=== PATIENT | male | born 1965 | race Caucasian/White ===

== ENCOUNTER → 2020-09-03 16:40 | Outpatient (CLI) | payer BC, SELFPAY ==
--- NOTE | ~2020-09-03 | XR_ITS ---
EXAMINATION: XR lumbar spine min 4V DATE: 09/03/2020 17:31 INDICATION: Lumbar radiculopathy. Sciatica. TECHNIQUE: 5 views of lumbar spine were obtained. COMPARISON: CT abdomen and pelvis 03/12/2019 FINDINGS: There is 7 degrees levocurvature of thoracolumbar spine. There is a transitional segment at lumbosacral junction that is designated L5. There are hypoplastic ribs at T12. There is 4 mm anterol isthesis of L4 on L5. There is mild chronic anterior wedging of T12 and L1 vertebral bodies. There is mildly decreased disc height from T12-L1 through L1-L2 and at L4-L5. There is severe facet joint ost eoarthritis in lower lumbar spine. IMPRESSION: 1. Mild lumbar spondylosis. Reviewed, dictated and finalized at location A. IMPRESSION: 1. Mild lumbar spondylosis.
--- NOTE | ~2020-09-03 | XR_ITS ---
EXAMINATION: XR cervical spine min 6V DATE: 09/03/2020 17:31 INDICATION: Neck pain. TECHNIQUE: 7 views of cervical spine were obtained. COMPARISON: Cervical spine radiographs 02/06/2019 FINDINGS: There is 3 mm dextrocurvature of cervical spine. Vertebral body heights are normal. There i s mildly decreased disc height at C4-C5 and C6-C7 and moderately decreased disc height at C5-C6. Ther e is multilevel uncovertebral joint osteoarthritis, severe on the right at C5-C6. There is multilevel mild facet joint osteoarthritis. There is mild right neural foraminal stenosis at C4-C5, C5-C6, and C6-C7. There is mild left neural foraminal stenosis at C4-C5, C5-C6, and C6-C7. There is mild central canal stenosis at C4-C5 C5-C6, and C6-C7. No prevertebral soft tissue swelling. IMPRESSION: 1. Moderate cervical spondylosis, stable from 02/06/2019. Reviewed, dictated and finalized at location A.
== END ==
DX: M47.812 Spondylosis without myelopathy or radiculopathy, cervical region (principal); M47.23 Other spondylosis with radiculopathy, cervicothoracic region
CPT/HCPCS: 72052; 72110

== ENCOUNTER 2022-04-22 10:38 | Outpatient (CLI) | payer BC, SELFPAY ==
--- NOTE | 2022-04-22 10:42 | EST_ITS ---
Patient Info Name: Brad Barahona Age: 56 years : 1965 Gender: Male Ht: 69 in Wt: 240 lbs BSA: 2.34 m2 HR: 75 bpm BP: 133 / 94 mmHg Exam Date: 04/22/2022 10:55 AM Exam Location: [facility] Stress Patient Status: Outpatient Admit Date: 04/22/2022 Staff Ordering Physician: Florentin Vela DO Attending Provider: Florentin Vela DO Exercise Technologist: Nidhi Adam CT Exercise Physician: Florentin Vela DO Exam Type: CA stress test treadmill Study Info Indications R06.09 - Other forms of dyspnea A treadmill exercise stress test was performed. Summary 1. 1. Negative Antione exercise stress test for ischemic ST changes by ECG criteria. 2. 2. Reduced functional capacity, achieving 7 METs of workload. 3. 3. Appropriate HR response to exercise. 4. 4. Appropriate HR recovery at 1 minute post exercise. 5. 5. No imaging with stress testing. 6. 6. Patient informed of the above results. Protocol: Antione Stress ECG Details Stage: REST Duration (min): 0 min : 58 sec Speed (mph): 0.0 Grade (%): 0 HR (bpm): 75 SBP (mmHg): 133 DBP (mmHg): 94 METS: --- Stage: REST Duration (min): 2 min : 14 sec Speed (mph): 0.0 Grade (%): 0 HR (bpm): 79 SBP (mmHg): 133 DBP (mmHg): 94 METS: --- Stage: REST Duration (min): 6 min : 5 sec Speed (mph): 0.0 Grade (%): 0 HR (bpm): 87 SBP (mmHg): 133 DBP (mmHg): 94 METS: --- Stage: STAGE 1 Duration (min): 1 min : 0 sec Speed (mph): 1.7 Grade (%): 10 HR (bpm): 118 SBP (mmHg): 133 DBP (mmHg): 94 METS: --- Stage: STAGE 1 Duration (min): 2 min : 0 sec Speed (mph): 1.7 Grade (%): 10 HR (bpm): 133 SBP (mmHg): 133 DBP (mmHg): 94 METS: --- Stage: STAGE 1 Duration (min): 3 min : 0 sec Speed (mph): 1.7 Grade (%): 10 HR (bpm): 133 SBP (mmHg): 179 DBP (mmHg): 85 METS: --- Stage: STAGE 2 Duration (min): 1 min : 0 sec Speed (mph): 2.5 Grade (%): 12 HR (bpm): 139 SBP (mmHg): 179 DBP (mmHg): 85 METS: --- Stage: STAGE 2 Duration (min): 2 min : 0 sec Speed (mph): 2.5 Grade (%): 12 HR (bpm): 150 SBP (mmHg): 182 DBP (mmHg): 76 METS: --- Stage: STAGE 2 Duration (min): 2 min : 8 sec Speed (mph): 2.5 Grade (%): 12 HR (bpm): 150 SBP (mmHg): 182 DBP (mmHg): 76 METS: --- Stage: RECOVERY Duration (min): 0 min : 51 sec Speed (mph): 0.0 Grade (%): 0 HR (bpm): 126 SBP (mmHg): 182 DBP (mmHg): 76 METS: --- Stage: RECOVERY Duration (min): 1 min : 51 sec Speed (mph): 0.0 Grade (%): 0 HR (bpm): --- SBP (mmHg): 182 DBP (mmHg): 76 METS: --- Stage: RECOVERY Duration (min): 2 min : 28 sec Speed (mph): 0.0 Grade (%): 0 HR (bpm): --- SBP (mmHg): 182 DBP (mmHg): 76 METS: --- Rest HR: 87 bpm Peak HR: 151 bpm Rest Sys BP: 133
== END 2022-04-22 10:39 | disposition home or self-care (01) ==
LOC: ANHCARD 10:39
PROVIDERS: Visit Provider Internal Medicine Cardiovascular Disease
DX: R06.09 Other forms of dyspnea (principal)
CPT/HCPCS: 93017

== ENCOUNTER 2022-10-09 22:00 | Inpatient (IN) | payer BC, SELFPAY ==
--- NOTE | ~2022-10-09 | XR_ITS ---
EXAMINATION: XR abdomen/kub 1V DATE: 10/11/2022 15:47 INDICATION: Ureteral stone TECHNIQUE: A supine view of the abdomen on 2 radiographs was obtained. COMPARISON: 10/10/2022 FINDINGS: Left internal ureteral stent with loops formed over the expected position of the left renal pelvis an d bladder. 5 mm stones project over the lower pole of the left kidney. Additional bilateral renal sto jil seen on the prior CT are unable to be definitively distinguished from the gas and stool in the rebolledo perimposed colon. Phlebolith in the left hemipelvis projecting over the pubic body. No dilated loops of gas-filled bowel to suggest obstruction. Lung bases are clear. Moderate lumbar spondylosis with se nellie lower lumbar facet osteoarthritis. IMPRESSION: 1. Left internal ureteral stent in expected position. 2. 5 mm stone projecting over the lower pole of the left kidney. Additional small bilateral renal sto jil seen on prior CT are unable to be distinguished from the superimposed bowels in the current study . Reviewed, dictated and finalized at location L. IMPRESSION: 1. Left internal ureteral stent in expected position. 2. 5 mm stone projecting over the lower pole of the left kidney. Additional sma ll bilateral renal stones seen on prior CT are unable to be distinguished from the superimposed bowels in the current study.
--- NOTE | ~2022-10-09 | CT_ITS ---
Non-contrast CT scan of the Abdomen and Pelvis Clinical indication: Left flank pain Technique: 2.5 mm axial scans were obtained through the abdomen and pelvis without intravenous or or al contrast. Dose reduction technique was used on this scan by utilizing automated exposure control a nd iterative reconstruction technique. The dose-length product (DLP) was 1151.70 mGy-cm. COMPARISON: 03/12/2019 Findings: Images through the lung bases reveal stable right middle lobe pulmonary nodules (axial ric ges 9-10). There is a 6 mm stone at the very proximal left ureter, with mild left hydronephrosis. Multiple addit ional small bilateral nonobstructing renal stones are present. No right ureteral stone or right hydro nephrosis. There is diffuse fatty infiltration of liver. Calcified gallstones are present. The spleen, pancreas, and adrenals appear normal. There are atherosclerotic calcifications of the aorta. There is no evidence of bowel obstruction. Images through the pelvis were performed. There is no evidence of ascites or lymphadenopathy. Possibl e urinary bladder wall thickening. Prostate gland and seminal vesicles are unremarkable. Impression: 6 mm proximal left ureteral stone with mild left hydronephrosis. Multiple small additional bilateral nonobstructing renal stones. Possible urinary bladder wall thickening. Correlate for cystitis. Cholelithiasis. Diffuse fatty infiltration of liver. Reviewed, dictated and finalized at [facility]. Impression: 6 mm proximal left ureteral stone with mild left hydronephrosis. Multiple small additional bilateral nonobstructing renal stones. Possible urinary bladder wall thickening. Correlate for cystitis. Cholelithiasis. Diffuse fatty infiltration of liver.
--- NOTE | ~2022-10-09 | XR_ITS ---
EXAMINATION: XR retrograde pyelo w/stent LT DATE: 10/10/2022 15:05 CDT INDICATION: LEFT SPECIAL . TECHNIQUE: 5 fluoroscopic images of the left abdomen and pelvis were obtained during left retrograde pyelography with stent placement performed by the surgeon. I was not present in the operating room. F luoroscopy exposure time was 14.4 seconds. Air Kerma 8.39 mGy. DAP [id number] mGym2. COMPARISON: CT abdomen and pelvis, same date FINDINGS: Rounded calcification projecting over the mid left abdomen likely representing the previously describ ed ureteral stone. Mild caliectasis following contrast injection. Following stent deployment the prox imal coil projects over an upper pole calyx, images of the distal coil not provided. IMPRESSION: Fluoroscopic documentation of left retrograde pyelography with stent placement. Please refer to the o perative note for complete procedural details . Reviewed, dictated and finalized at location K. IMPRESSION: Fluoroscopic documentation of left retrograde pyelography with stent placement. Please refer to the operative note for complete procedural details .
--- NOTE | ~2022-10-09 | CT_ITS ---
EXAMINATION: CT abdomen pelvis wo con DATE: 10/11/2022 18:41 INDICATION: left sided abd pain TECHNIQUE: Computed tomography (CT) of the abdomen and pelvis was performed without intravenous contr ast. Automated exposure control and iterative reconstruction technique were employed. The dose-length product was 1358.07 mGy-cm. COMPARISON: 10/10/2022. FINDINGS: Lower thorax: Small focus of acinar opacities in the right lower lobe. Bilateral lower lung scar and atelectasis. Fissural nodules in the right middle lobe, likely lymph nodes. Coronary artery calcifica tions. Liver: Diffuse fatty infiltration. Biliary/Gallbladder: Cholelithiasis, no bladder is mostly contracted. No bile duct dilation. Pancreas: No mass or duct dilation. Spleen: Normal. Adrenals:No mass. Kidneys: Right ureteral stent, in good position. Multiple nonobstructing bilateral calculi. No suspic ious renal mass or hydronephrosis. Moderate left perinephric stranding. Moderate left periureteral st randing. GI tract: No small or large bowel dilation. Appendix not confidently visualized. Mesentery/Peritoneum: No ascites, mass, or free air. Retroperitoneum: No mass. Pelvis: Small volume free pelvic fluid. Distended urinary bladder with wall thickening and intralumin al gas. Prostatomegaly. Soft Tissues: Soft tissues and body wall unremarkable. Bones: No acute osseous finding. IMPRESSION: Small focus of infection/aspiration in the right lower lobe. Hepatic steatosis. Left ureteral stent with no hydronephrosis. Findings as can be seen with cystitis and ascending infection on the left, correlate with urinalysis and clinical findings of infection. Reviewed, dictated and finalized at location K. IMPRESSION: Small focus of infection/aspiration in the right lower lobe. Hepatic steatosis. Left ureteral stent with no hydronephrosis. Findings as can be seen with cystitis and ascending infection on the left, nany elate with urinalysis and clinical findings of infection.
[2022-10-09 22:00] VITALS: BP 163/115; PULSE 91; RESP 20; TEMP 36.4; O2SAT 100
--- NOTE | 2022-10-09 23:43 | PC.NURSE ---
Patient comes to desk to inform this nurse he has some nausea and has vomited in the bathroom. Patient given emesis bag.
[2022-10-10] VITALS (10 sets, daily range): BP systolic 109–163; BP diastolic 68–106; PULSE 62–86; RESP 12–20; TEMP 36.6–37.1; O2SAT 90–98; BMI 36.1
--- NOTE | 2022-10-10 00:10 | ED.GENADULT ---
HPI - General Adult General Chief complaint: Urogenital-Male Stated complaint: . Time Seen by Provider: 10/10/22 00:00 Source: patient Mode of arrival: ambulatory Limitations: no limitations History of Present Illness HPI narrative: This is a 57-year-old male with PMH of HTN who presents to the ED for chief complaint left flank pain onset yesterday evening. Reports associated hematuria 3 hours prior to arrival. Patient reports the pain radiates from the left flank into the left lower abdomen and groin on occasion. He reports pain is 9 out of 10 currently. Denies dysuria. Endorses nausea and vomiting with 2 episodes of emesis. Denies fevers, chills, problems with bowel movements, rectal pain. Related Data Home Medications Medication Instructions Recorded Confirmed valsartan 160 1 tablet PO DAILY 02/26/19 03/21/22 mg-hydrochlorothiazide 12.5 mg tablet ascorbic acid (vitamin C) 500 mg mg PO 03/21/22 03/21/22 capsule aspirin 81 mg tablet,delayed 81 mg PO DAILY 03/21/22 03/21/22 release (Adult Low Dose Aspirin) doxazosin 4 mg tablet 4 mg PO DAILY 03/21/22 03/21/22 Allergies Allergy/AdvReac Type Severity Reaction Status Date / Time No Known Allergies Allergy Verified 10/09/22 23:44 [facility] Past Medical History Medical History Hypertension Stomach ulcer Surgical History Surgical History History of colonoscopy Family History Family History Father Hypertension Mother Hypertension Unknown Hypertension Social History Social History Smoking status: Never smoker Alcohol intake: never Living arrangements: alone 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 Cannot find comfortable position in the bed HEAD: Normocephalic, atraumatic. EYES: PERRLA and EOMI. ENT: Nares clear, no rhinorrhea or epistaxis. Mucous membranes moist. Oropharynx without tonsillar hypertrophy exudate or other lesions. NECK: Supple. No adenopathy or masses. CHEST: No respiratory distress. Clear to auscultation. No wheezes rales or rhonchi HEART: Regular rate and rhythm. No murmur heard. Normal peripheral pulses. ABDOMEN: Left flank tenderness positive. Negative right flank tenderness. Soft, otherwise nontender, nondistended, normal active bowel sounds. MSK: Normal range of motion. No edema. SKIN: Warm, dry, no rash. NEURO: Alert and oriented x3. No focal deficits. PSYCH: Normal mood and affect. Course Vital Signs Vital signs: Vital Signs Temperature 97.5 F L 10/09/22 22:00 Pulse Rate 91 10/09/22 22:00 Respiratory Rate 20 10/09/22 22:00 Blood Pressure 163/115 H 10/09/22 22:00 Pulse Oximetry 100 10/09/22 22:00 Oxygen Delivery Room Air 10/09/22 22:00 Temperature 97.5 F L 10/09/22 22:00 Pulse Rate 91 10/09/22 22:00 Respiratory Rate 20 10/09/22 22:00 Blood Pressure 163/115 H 10/09/22 22:00 Pulse Oximetry 100 10/09/22 22:00 Oxygen Delivery Room Air 10/09/22 22:00 Medical Decision Making MDM Narrative Medical decision making narrative: This is a 57-year-old male who presents to the ED with chief complaint of left flank pain radiating to the left abdomen for 1 day. Vitals show initial hypertension but otherwise benign. Afebrile. Exam does reveal left flank tenderness. He is exhibiting renal colic. Initial lab work shows a normal white count. His CMP reveals slight creatinine elevation at 1.6 and BUN of 24. UA is indicative of possible infection. His CT scan is revealing of 8.5 cm stone in the proximal left ureter with mild hydronephrosis. They also call possible cystitis. This is consistent with his UA so he will be covered with Rocephin. His pain was somewhat difficult to cont
[2022-10-10] MEDS: ONDANSETRON INJ 4 MG/2 ML VIAL IV PUSH ×2 (00:42→09:46)
[2022-10-10] MEDS: HYDROmorphone HCL INJ (*CRX) 1 MG/ML SYR 0.5 MG IV PUSH ×2 (00:42→01:51)
[2022-10-10] MEDS: SODIUM CHLORIDE 0.9% IV 1,000 ML 999 ML IV CONT (00:43)
[2022-10-10 01:10] LABS: Basophils Absolute Auto 0.1 K/mm3 (0.0-0.1); Basophils Percent Auto 0.7 % (0.2-1.2); Eosinophils Absolute Auto 0.1 K/mm3 (0-0.3); Eosinophils Percent Auto 0.8 % (0-4.4); Hemoglobin 15.6 g/dL (14.0-18.0); Immature Granulocyte Absolute 0.05 K/mm3 (0.00-0.031); Immature Granulocyte Percent A 0.5 % (0-0.5); Lymphocytes Absolute Auto 1.16 K/mm3 (0.9-3.2); Lymphocytes Percent Auto 11.2 % (18.3-44.2); Mean Corpuscular HGB Conc 36.3 g/dl (32-36); Mean Corpuscular Hemoglobin 31.8 pg (26-34); Mean Corpuscular Volume 87.6 fl (80-100); Mean Platelet Volume 9.4 fl (7.4-10.4); Monocytes Absolute Auto 0.6 K/mm3 (0.1-0.6); Monocytes Percent Auto 5.4 % (2.6-8.5); Neutrophils Absolute Auto 8.5 K/mm3 (1.3-6.7); Neutrophils Percent Auto 81.4 % (45.5-73.1); Platelet Count Result 209 k/mm3 (150-375); Red Blood Count 4.91 M/mm3 (4.6-6.20); Red Cell Distribution Width 13.2 % (11.5-14.5); White Blood Count 10.4 K/mm3 (4.5-10.0)
[2022-10-10 01:12] LABS: Alanine Aminotransferase 51 U/L (6-50); Albumin Level 4.9 g/dL (3.5-5.1); Alkaline Phosphatase 34 U/L (38-126); Anion Gap 7 mmol/L (8-16); Aspartate Amino Transferase 44 U/L (17-59); Bilirubin,Total 2.3 mg/dL (0.2-1.3); Blood Urea Nitrogen 24 mg/dL (9-20); Calcium 10.1 mg/dL (8.4-10.2); Carbon Dioxide 25 mmol/L (22-30); Chloride 105 mmol/L (98-107); Estimated CRCL calculation 58 ml/min; Estimated Glomerular Filt Rate 45; Glucose 111 mg/dL (65-110); Potassium 3.9 mmol/L (3.4-5.0); Sodium 137 mmol/L (137-145)
[2022-10-10 01:15] LABS: Appearance Urine Cloudy (Clear); Bacteria Urine None Seen /hpf; Bilirubin Urine Negative (Negative); Blood Urine 3+ (Negative); Color Urine Dark Yellow (Yellow); Glucose Urine UA Negative (Negative); Ketones Urine Trace mg/dL (Negative); Leukocyte Esterase Ur 2+ LEU/UL (Negative); Need Manual Microscopic Reviewed; Nitrate Urine Negative (Negative); Non Pathogenic Casts 0-2; Protein Urine 2+ mg/dL (Negative); RBC Urine >100 /hpf (0-2); Squamous Epithelial Cell Urine None seen /hpf (Few); WBC Urine 51-100 /hpf; pH Urine 5.5 (5.0-9.0)
[2022-10-10 01:30] LABS: Add Urine Microscopic? YES
[2022-10-10] MEDS: cefTRIAXone 2 GM/NS 100 ML 2 GM/100 ML BAG IVPB (01:51)
[2022-10-10] MEDS: HYDROmorphone HCL INJ (*CRX) 1 MG/ML SYR IV PUSH ×3 (03:11→09:40)
[2022-10-10] MEDS: SODIUM CHLORIDE 0.9% IV 1,000 ML 125 ML IV CONT ×3 (03:11→21:20)
--- NOTE | 2022-10-10 03:35 | ADMGEN ---
This patient, Brad Barahona, was admitted to Medical Room 241-. Patient/family oriented to hospital policies and general routines including ID bracelet, bed and alarms, visiting hours, pain management, procedures, bathroom and other care routines, personal items, smoking policy, room service/diet, and visiting hours. Information on how to activate the Rapid Response Team has been discussed. Patient/Family are encouraged to report perceived risks to care and to ask questions if they do not understand what they are told or what they should do.
[2022-10-10] MEDS: HYDROmorphone HCL INJ (*CRX) 1 MG/ML SYR 2 MG IV PUSH ×5 (03:52→23:33)
[2022-10-10 05:36] LABS: Anion Gap 9 mmol/L (8-16); Blood Urea Nitrogen 24 mg/dL (9-20); Calcium 9.1 mg/dL (8.4-10.2); Carbon Dioxide 23 mmol/L (22-30); Chloride 108 mmol/L (98-107); Estimated CRCL calculation 58 ml/min; Estimated Glomerular Filt Rate 45; Glucose 135 mg/dL (65-110); Potassium 4.2 mmol/L (3.4-5.0); Sodium 140 mmol/L (137-145)
[2022-10-10 05:44] LABS: Hematocrit 40.3 % (42.0-52.0); Mean Corpuscular HGB Conc 34.7 g/dl (32-36); Mean Corpuscular Volume 89.4 fl (80-100); Mean Platelet Volume 9.1 fl (7.4-10.4); Platelet Count Result 206 k/mm3 (150-375); Red Blood Count 4.51 M/mm3 (4.6-6.20); Red Cell Distribution Width 13.2 % (11.5-14.5); White Blood Count 10.1 K/mm3 (4.5-10.0)
--- NOTE | 2022-10-10 07:36 | WPDURCON ---
Assessment and Plan Assessment and plan (1) Left ureteral calculus: Code(s): N20.1 - Calculus of ureter Status: Acute Assessment and Plan: I will taken to the operating room for left ureteral stent today. He understands risks of bleeding, infection, damage to the urinary tract. He also understands I will not be removing the stone today. We will plan on definitive stone management as an outpatient. I will get a KUB to see if stone is visible. We will also need to wait for results of urine culture. (2) Hydronephrosis: Code(s): N13.30 - Unspecified hydronephrosis Status: Acute (3) Multiple renal calculi: Code(s): N20.0 - Calculus of kidney Status: Acute (4) Abnormal urinalysis: Code(s): R82.90 - Unspecified abnormal findings in urine Status: Acute Assessment and Plan: Continue antibiotics. Treat based on urine culture Urology Consult Note HPI Date Seen: 10/10/22 Requesting Physician: Rosario Araya MD Primary Care Provider: PHYSICIAN NOT ON STAFF Consult Narrative Narrative: Brad Barahona is a 57 year old male who was never passed a stone before. He started having left flank pain on Monday afternoon which went in to Monday and then became much worse Monday night. He noted nausea with vomiting. He noted blood in the urine. He denies any fevers or chills. He denied any dysuria or symptoms of infection. CT scan shows bilateral renal stones as well as a 6 mm proximal left ureteral stone with hydronephrosis. He is uncomfortable and desires intervention for this stone. Review of Systems Review of Systems: All systems reviewed & are unremarkable except as noted in HPI and below PMFSH Past Medical History Medical History Hypertension Stomach ulcer Surgical History Surgical History History of colonoscopy Family History Family History Father Hypertension Mother Hypertension Unknown Hypertension Social History Social History Smoking status: Never smoker Alcohol intake: never Substance use: never Lack of Transportation: No Lack of Food: Never True Current Housing: I Have Housing Concerned About Future Housing: No Difficulty Paying Gas/Electric Bills: No Difficulty Paying for Meds: No Currently Unemployed: No Education: Associate Degree Difficulty w/ Childcare or Family Care: No Living arrangements: alone 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 [employer] Spiritual care concerns: No Meds Home Medications and Allergies Home Medications Medication Instructions Recorded Confirmed Type valsartan 160 1 tablet PO DAILY 02/26/19 10/10/22 History mg-hydrochlorothiazide 12.5 mg tablet ascorbic acid (vitamin C) 500 mg 500 mg PO DAILY 03/21/22 10/10/22 History capsule aspirin 81 mg tablet,delayed 81 mg PO DAILY 03/21/22 10/10/22 History release (Adult Low Dose Aspirin) doxazosin 4 mg tablet 4 mg PO DAILY 03/21/22 10/10/22 History [id number] 333 mg-133 1 tablet PO DAILY 10/10/22 10/10/22 History mg-5 mg tablet Allergies Allergy/AdvReac Type Severity Reaction Status Date / Time No Known Allergies Allergy Verified 10/09/22 23:44 Vital Signs Vital Signs - 24 hr 10/09/22 22:00 10/10/22 02:15 10/10/22 01:30 Temperature 97.5 F L Pulse Rate 91 79 80 Respiratory Rate 20 18 18 Blood Pressure 163/115 H 153/80 H 154/89 H Pulse Oximetry 100 94 96 Oxygen Delivery Room Air 10/10/22 03:35 10/10/22 04:24 Temperature 98.3 F Pulse Rate 78 Respiratory Rate 18 Blood Pressure 163/106 H Pulse Oximetry 96 Oxygen Delivery Room Air Exam Const: General: cooperative, healthy appearing, well developed, alert, awake, Physically act
--- NOTE | 2022-10-10 09:03 | PM.IMHP ---
H&P: HPI History of Present Illness Date/Time: 10/10/22 09:03 Chief Complaint: Left flank pain Narrative: 57 old male with past medical history of hypertension presented to the ED complaining of left flank pain that started 2 days ago on all severe yesterday with associated hematuria. Pain in the left fine radiates to the left lower abdomen and groin on occasion. Severe intensity reports no dysuria no nausea vomiting no fever chills. No change in bowel habits. Cardiogram revealed normal WBC count creatinine slightly elevated 1.6 UA indicated a possible infection CT revealed 8 point cm stone in the proximal left ureter with mild hydronephrosis. Rocephin was given urology has been consulted. Review of Systems Review of Systems: - CONSTITUTIONAL: Denies weight loss, fever and chills. - HEENT: Denies changes in vision and hearing - RESPIRATORY: Denies SOB and cough. - CV: Denies palpitations and CP. - GI: Reports left flank pain, no abdominal pain, nausea, vomiting and diarrhea. - : Denies dysuria and urinary frequency. - MSK: Denies myalgia and joint pain. - SKIN: Denies rash and pruritus. - NEUROLOGICAL: Denies headache and syncope. - PSYCHIATRIC: Denies recent changes in mood. Denies anxiety and depression. [facility] Past Medical History Medical History Hypertension Stomach ulcer Surgical History Surgical History History of colonoscopy Family History Family History Father Hypertension Mother Hypertension Unknown Hypertension Social History Social History Smoking status: Never smoker Alcohol intake: never Substance use: never Lack of Transportation: No Lack of Food: Never True Current Housing: I Have Housing Concerned About Future Housing: No Difficulty Paying Gas/Electric Bills: No Difficulty Paying for Meds: No Currently Unemployed: No Education: Associate Degree Difficulty w/ Childcare or Family Care: No Living arrangements: alone 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 Spiritual care concerns: No Meds Home Medications and Allergies Home Medications Medication Instructions Recorded Confirmed Type valsartan 160 1 tablet PO DAILY 02/26/19 10/10/22 History mg-hydrochlorothiazide 12.5 mg tablet ascorbic acid (vitamin C) 500 mg 500 mg PO DAILY 03/21/22 10/10/22 History capsule aspirin 81 mg tablet,delayed 81 mg PO DAILY 03/21/22 10/10/22 History release (Adult Low Dose Aspirin) doxazosin 4 mg tablet 4 mg PO DAILY 03/21/22 10/10/22 History dvoheua-aifshsxjx-krea 333 mg-133 1 tablet PO DAILY 10/10/22 10/10/22 History mg-5 mg tablet Allergies Allergy/AdvReac Type Severity Reaction Status Date / Time No Known Allergies Allergy Verified 10/09/22 23:44 Vital Signs Vital Signs - 24 hr 10/09/22 22:00 10/10/22 02:15 10/10/22 01:30 Temperature 97.5 F L Pulse Rate 91 79 80 Respiratory Rate 20 18 18 Blood Pressure 163/115 H 153/80 H 154/89 H Pulse Oximetry 100 94 96 Oxygen Delivery Room Air 10/10/22 03:35 10/10/22 04:24 Temperature 98.3 F Pulse Rate 78 Respiratory Rate 18 Blood Pressure 163/106 H Pulse Oximetry 96 Oxygen Delivery Room Air Exam Narrative: GENERAL: Alert and oriented x3 in pain HEAD: Normocephalic, atraumatic. EYES: PERRLA and EOMI. ENT: Nares clear, no rhinorrhea or epistaxis.? Mucous membranes moist. NECK: Supple.? No adenopathy or masses.? CHEST: No respiratory distress. Clear to auscultation. No wheezes rales or rhonchi HEART: Regular rate and rhythm.? No murmur heard.? Normal peripheral pulses. ABDOMEN: Left flank tenderness positive.? Negative right flank tenderness.? Soft, otherwise nontender, nondistended, normal active bowel sounds. MSK: N
--- NOTE | 2022-10-10 13:47 | WPDHPUPDATE1 ---
History and Physical Update Update Date/Time: 10/10/22 13:47 History and Physical has been reviewed, including an updated exam of the patient. There are NO changes in the patient's condition. Risks, benefits, and alternatives have been discussed and questions answered. Patient agrees to proceed with procedure.
--- NOTE | 2022-10-10 14:14 | WPDANESEPPF ---
Anes - Initial Pre Proc Eval Procedure: Operation Date: 10/10/22 16:00 Proposed Procedures p Cystoscopy, Left Stent Placement - Ben Toledo MD Date/Time: 10/10/22 14:14 Surgeon: Rosario Araya MD Pre Op Diagnosis: Left Ureteral Stone, Cystitis Patient Data Age: 57 Gender: M Height: 1.75 m Weight: 111 kg Last Vital Signs Temp 36.7 C 10/10/22 14:08 Pulse 62 10/10/22 14:08 Resp 16 10/10/22 14:08 BP 109/68 10/10/22 14:08 Pulse Ox 96 10/10/22 14:08 O2 Del Method Room Air 10/10/22 14:08 Allergies Allergy/AdvReac Type Severity Reaction Status Date / Time No Known Allergies Allergy Verified 10/10/22 14:10 Home Medications Medication Instructions Recorded Confirmed Type valsartan 160 1 tablet PO DAILY 02/26/19 10/10/22 History mg-hydrochlorothiazide 12.5 mg tablet ascorbic acid (vitamin C) 500 mg 500 mg PO DAILY 03/21/22 10/10/22 History capsule aspirin 81 mg tablet,delayed 81 mg PO DAILY 03/21/22 10/10/22 History release (Adult Low Dose Aspirin) doxazosin 4 mg tablet 4 mg PO DAILY 03/21/22 10/10/22 History qjfzbra-pngtvnhls-vkcg 333 mg-133 1 tablet PO DAILY 10/10/22 10/10/22 History mg-5 mg tablet Laboratory Tests 10/10/22 10/10/22 00:47 05:18 WBC 10.4 H K/mm3 10.1 H K/mm3 (4.5-10.0) (4.5-10.0) RBC 4.91 M/mm3 4.51 L M/mm3 (4.6-6.20) (4.6-6.20) Hgb 15.6 g/dL 14.0 g/dL (14.0-18.0) (14.0-18.0) Hct 43.0 % 40.3 L % (42.0-52.0) (42.0-52.0) MCV 87.6 fl 89.4 fl (80-100) (80-100) MCH 31.8 pg 31.0 pg (26-34) (26-34) MCHC 36.3 H g/dl 34.7 g/dl (32-36) (32-36) RDW 13.2 % 13.2 % (11.5-14.5) (11.5-14.5) Plt Count 209 k/mm3 206 k/mm3 (150-375) (150-375) MPV 9.4 fl 9.1 fl (7.4-10.4) (7.4-10.4) Immature Gran % (Auto) 0.5 % (0-0.5) Neut % (Auto) 81.4 H % (45.5-73.1) Lymph % (Auto) 11.2 L % (18.3-44.2) [place] % (Auto) 5.4 % (2.6-8.5) Eos % (Auto) 0.8 % (0-4.4) Baso % (Auto) 0.7 % (0.2-1.2) Lymph # (Auto) 1.16 K/mm3 (0.9-3.2) [place] # (Auto) 0.6 K/mm3 (0.1-0.6) Eos # (Auto) 0.1 K/mm3 (0-0.3) Baso # (Auto) 0.1 K/mm3 (0.0-0.1) Abs Immat Gran (auto) 0.05 H K/mm3 (0.00-0.031) Absolute Neuts (auto) 8.5 H K/mm3 (1.3-6.7) Absolute Nucleated RBC 0.0 K/mm3 (0.0-0.012) Nucleated RBC % 0.0 % (0.0-0.2) Sodium 137 mmol/L 140 mmol/L (137-145) (137-145) Potassium 3.9 mmol/L 4.2 mmol/L (3.4-5.0) (3.4-5.0) Chloride 105 mmol/L 108 H mmol/L (98-107) (98-107) Carbon Dioxide 25 mmol/L 23 mmol/L (22-30) (22-30) Anion Gap 7 L mmol/L 9 mmol/L (8-16) (8-16) BUN 24 H mg/dL 24 H mg/dL (9-20) (9-20) Creatinine 1.60 H mg/dL 1.60 H mg/dL (0.7-1.3) (0.7-1.3) Estim Creat Clear Calc 58 ml/min 58 ml/min Estimated GFR 45 L 45 L (59 - ) (59 - ) Glucose 111 H mg/dL 135 H mg/dL (65-110) (65-110) Calcium 10.1 mg/dL 9.1 mg/dL (8.4-10.2) (8.4-10.2) Total Bilirubin 2.3 H mg/dL (0.2-1.3) AST 44 U/L (17-59) ALT 51 H U/L (6-50) Alkaline Phosphatase 34 L U/L (38-126) Total Protein 8.0 g/dL (6.3-8.2) Albumin 4.9 g/dL (3.5-5.1) Urine Color Dark yellow (Yellow) Urine Appearance Cloudy H (Clear) Urine pH 5.5 (5.0-9.0) Ur Specific [place] 1.020 (1.001-1.035) Urine Protein 2+ H mg/dL (Negative) Urine Glucose (UA) Negative mg/dL (Negative) Urine Ketones Trace H mg/dL (Negative) Ur Blood (Man) 3+ H (Negative) Urine Nitrate Negative (Negative) Urine Bilirubin Negative (Negative) Urine Urobilinogen 1.0 mg/dL (<2.0) Add Ur Microanalysis Reviewed Leukocyte Esterase Rfl 2+ H BRAD/UL (Negative) Urine RBC >100 H /hpf (0-2) Urine WBC 51-100
[2022-10-10] MEDS: LACTATED RINGERS 1,000 ML 30 ML IV CONT (14:15)
--- NOTE | 2022-10-10 14:29 | PCCCNOTE ---
On 10/10/22, the student, Lulu Starr, provided care and completed [facility] documentation on this patient. I have reviewed the student's documentation and agree with the findings.
[2022-10-10] MEDS: LIDOCAINE HCL 2% GEL UROJET 10 ML PKG MUCOUS MEM (15:10)
--- NOTE | 2022-10-10 15:38 | WPDUROPN2 ---
Subjective Subjective Date/Time Seen: 10/10/22 15:38 Interval history: Ureteral stent placed today on the left. When urine culture returns he can be sent home on antibiotics if culture positive. My partner Dr. Cosby. Will arrange definitive stone management Objective Data Vital Signs Vital Signs: Vital Signs - 24 hr 10/09/22 22:00 10/10/22 02:15 10/10/22 01:30 Temperature 97.5 F L Pulse Rate 91 79 80 Respiratory Rate 20 18 18 Blood Pressure 163/115 H 153/80 H 154/89 H Pulse Oximetry 100 94 96 Oxygen Delivery Room Air 10/10/22 03:35 10/10/22 04:24 10/10/22 14:08 Temperature 98.3 F 98.0 F Pulse Rate 78 62 Respiratory Rate 18 16 Blood Pressure 163/106 H 109/68 Pulse Oximetry 96 96 Oxygen Delivery Room Air Room Air Intake/Output Intake/Output: Intake & Output 10/07/22 10/08/22 10/09/22 10/10/22 23:59 23:59 23:59 23:59 Intake Total 2100 Output Total 350 Balance 1750 Meds/Results Medications: Active Medications Generic Name Dose Route Start Last Admin Trade Name Freq PRN Reason Stop Dose Admin Ascorbic Acid 500 mg 10/11/22 09:00 Ascorbic Acid 500 Mg Tablet PO DAILY [facility] Aspirin 81 mg 10/11/22 09:00 Aspirin 81 Mg Enteric Tablet PO DAILY [facility] Doxazosin Mesylate 4 mg 10/11/22 09:00 Doxazosin Mesylate 4 Mg Tablet PO DAILY [facility] Hydromorphone HCl 2 mg 10/10/22 11:11 10/10/22 11:23 Hydromorphone Hcl Inj (*Crx) 1 Mg/Ml Syr IV PUSH 2 mg Q2H PRN Administration Pain Rated 7-10 Sodium Chloride 1,000 mls @ 125 mls/hr 10/10/22 02:25 10/10/22 09:44 Normal Saline Iv IV CONT 125 mls/hr .Q8H CIPRIANO Administration Ceftriaxone Sodium 1 gm in 50 mls @ 100 mls/hr 10/11/22 02:00 Rocephin 1 Gm/Ns 50 Ml IVPB Q24H [facility] Miscellaneous Information 1 each 10/10/22 00:01 Lgbfkdh-Aqvzyegvb-Jmal 333-133-5 Mg Tablet Is Nonformulary. Hold While Hospitalized? XX 11/09/22 00:00 CLARIFY CIPRIANO Non-Formulary Medication 1 tablet 10/11/22 09:00 Oizlvfz-Usjqdquqt-Xgmw PO 11/10/22 08:59 DAILY [facility] Ondansetron HCl 4 mg 10/10/22 02:23 10/10/22 09:46 Ondansetron Inj 4 Mg/2 Ml Vial IV PUSH 4 mg Q4H PRN Administration Nausea Radiology Results: ITS Impressions Abdomen/Pelvis CT 10/10/22 06:12 Impression: 6 mm proximal left ureteral stone with mild left hydronephrosis. Multiple small additional bilateral nonobstructing renal stones. Possible urinary bladder wall thickening. Correlate for cystitis. Cholelithiasis. Diffuse fatty infiltration of liver. Retrograde Pyelogram 10/10/22 15:20 IMPRESSION: Fluoroscopic documentation of left retrograde pyelography with stent placement. Please refer to the operative note for complete procedural details . Labs Labs: Laboratory Results - last 24 hr 10/10/22 10/10/22 00:47 05:18 WBC 10.4 H 10.1 H RBC 4.91 4.51 L Hgb 15.6 14.0 Hct 43.0 40.3 L MCV 87.6 89.4 MCH 31.8 31.0 MCHC 36.3 H 34.7 RDW 13.2 13.2 Plt Count 209 206 MPV 9.4 9.1 Immature Gran % (Auto) 0.5 Neut % (Auto) 81.4 H Lymph % (Auto) 11.2 L [place] % (Auto) 5.4 Eos % (Auto) 0.8 Baso % (Auto) 0.7 Lymph # (Auto) 1.16 [place] # (Auto) 0.6 Eos # (Auto) 0.1 Baso # (Auto) 0.1 Abs Immat Gran (auto) 0.05 H Absolute Neuts (auto) 8.5 H Absolute Nucleated RBC 0.0 Nucleated RBC % 0.0 Sodium 137 140 Potassium 3.9 4.2 Chloride 105 108 H Carbon Dioxide 25 23 Anion Gap 7 L 9 BUN 24 H 24 H Creatinine 1.60 H 1.60 H Estim Creat Clear Calc 58 58 Estimated GFR 45 L 45 L Glucose 111 H 135 H Calcium 10.1 9.1 Total Bilirubin 2.3 H AST 44 ALT 51 H Alkaline Phosphatase 34 L Total Protein 8.0 Albumin 4.9 Urine Color Dark yellow Urine Appearance Cloudy H Urine pH 5.5 Ur Specific [place] 1.020 Urine Protein 2+ H Urine Glucose (UA) Negative Urine Ketones Trace H Ur Blood (Man) 3+ H Urine
--- NOTE | 2022-10-10 15:38 | W.PM.PROC2 ---
Procedure Note - Detailed Date of Procedure 10/10/22 Pre-op Diagnosis Left Ureteral Stone Post-op Diagnosis Same Procedure Performed Cystoscopy, left retrograde pyelogram, left ureteral stent placement Surgeon Ben Toledo MD Anesthesia General Indications This is a gentleman with a left ureteral stone. He has a abnormal urinalysis. No prominent symptoms of infection. We will place a stent today and await urine culture. Definitive stone management follow-up. He understands risks of bleeding, infection, inability to place the stent, damage to the urinary tract. 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 Informed consent obtained. From the operating room. He was given general anesthesia. He was placed in dorsal lithotomy position. He was prepped and draped sterile fashion. Time-out performed. 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 Stone was seen in the proximal left ureter. I performed cystoscopy. His bladder was examined and showed moderate trabeculations. There is no tumors or stones. I did a gentle retrograde pyelogram on the left. I outlined ureteral night of a. The stone was seen as a filling defect. There is no extravasation. Placed a guidewire to the kidney. I then placed a 4.8 variable length stent. Proximal coil in the renal pelvis upper pole. Distal coil in the bladder. His bladder was drained. He was awakened transferred to PACU in stable condition Implants Ureteral stent Estimated Blood Loss 0 Urine Output 150 Condition Stable Disposition PACU
[2022-10-10] MEDS: oxyBUTYnin CHLORIDE 5 MG TABLET PO (16:42)
[2022-10-11] MEDS: HYDROcodone/acetaminophen (*CRX) 5-325 MG TABLET 1 TAB PO ×3 (01:37→13:07)
[2022-10-11 05:29] VITALS: BP 123/73; PULSE 71; RESP 17; TEMP 37; O2SAT 96
[2022-10-11 05:34] LABS: Basophils Percent Auto 0.4 % (0.2-1.2); Hematocrit 36.8 % (42.0-52.0); Hemoglobin 12.6 g/dL (14.0-18.0); Immature Granulocyte Absolute 0.06 K/mm3 (0.00-0.031); Immature Granulocyte Percent A 0.5 % (0-0.5); Lymphocytes Absolute Auto 0.81 K/mm3 (0.9-3.2); Lymphocytes Percent Auto 7.3 % (18.3-44.2); Mean Corpuscular HGB Conc 34.2 g/dl (32-36); Mean Corpuscular Hemoglobin 31.4 pg (26-34); Mean Corpuscular Volume 91.8 fl (80-100); Mean Platelet Volume 9.1 fl (7.4-10.4); Monocytes Absolute Auto 0.8 K/mm3 (0.1-0.6); Monocytes Percent Auto 6.9 % (2.6-8.5); Neutrophils Absolute Auto 9.4 K/mm3 (1.3-6.7); Neutrophils Percent Auto 84.9 % (45.5-73.1); Platelet Count Result 183 k/mm3 (150-375); Red Blood Count 4.01 M/mm3 (4.6-6.20); Red Cell Distribution Width 13.5 % (11.5-14.5); White Blood Count 11.1 K/mm3 (4.5-10.0)
[2022-10-11 05:45] LABS: Alanine Aminotransferase 39 U/L (6-50); Albumin Level 3.8 g/dL (3.5-5.1); Alkaline Phosphatase 21 U/L (38-126); Anion Gap 6 mmol/L (8-16); Aspartate Amino Transferase 32 U/L (17-59); Bilirubin,Total 2.3 mg/dL (0.2-1.3); Blood Urea Nitrogen 29 mg/dL (9-20); Calcium 8.2 mg/dL (8.4-10.2); Carbon Dioxide 23 mmol/L (22-30); Chloride 105 mmol/L (98-107); Estimated CRCL calculation 58 ml/min; Estimated Glomerular Filt Rate 45; Glucose 118 mg/dL (65-110); Magnesium 2.1 mg/dL (1.6-2.3); Potassium 4.2 mmol/L (3.4-5.0); Sodium 134 mmol/L (137-145)
[2022-10-11] MEDS: SODIUM CHLORIDE 0.9% IV 1,000 ML 125 ML IV CONT ×3 (06:31→21:31)
[2022-10-11] MEDS: ASCORBIC ACID 500 MG TABLET PO (07:51)
[2022-10-11] MEDS: DOXAZOSIN MESYLATE 4 MG TABLET PO (07:51)
[2022-10-11] MEDS: hydroCHLOROthiazide 12.5 MG CAPSULE PO (07:51)
[2022-10-11] MEDS: VALSARTAN 160 MG TABLET PO (07:51)
[2022-10-11] MEDS: ASPIRIN 81 MG ENTERIC TABLET PO (07:51)
[2022-10-11] MEDS: HYDROmorphone HCL INJ (*CRX) 1 MG/ML SYR 2 MG IV PUSH ×5 (07:52→21:20)
[2022-10-11 08:00] VITALS: O2SAT 96
--- NOTE | 2022-10-11 10:54 | WPDANESPN ---
Anes - Prog Note Post-Op Date/Time: 10/11/22 10:54 Vital Signs: Last Vital Signs Temp 37.0 C 10/11/22 05:29 Pulse 71 10/11/22 05:29 Resp 17 10/11/22 05:29 BP 123/73 10/11/22 05:29 Pulse Ox 96 10/11/22 08:00 O2 Del Method Room Air 10/11/22 08:00 O2 Flow Rate 6 10/10/22 15:45 Pain Score (VAS): 7 I/O: Intake & Output 10/10/22 10/11/22 10/11/22 23:59 07:59 15:59 Intake Total 2240 1800 740 Output Total 800 925 300 Balance 1440 875 440 Laboratory Tests 10/11/22 05:11 10/11/22 05:11 10/11/22 05:11 WBC 11.1 H RBC 4.01 L Hgb 12.6 L Hct 36.8 L MCV 91.8 MCH 31.4 MCHC 34.2 RDW 13.5 Plt Count 183 MPV 9.1 Immature Gran % (Auto) 0.5 Neut % (Auto) 84.9 H Lymph % (Auto) 7.3 L [place] % (Auto) 6.9 Eos % (Auto) 0.0 Baso % (Auto) 0.4 Lymph # (Auto) 0.81 L [place] # (Auto) 0.8 H Eos # (Auto) 0.0 Baso # (Auto) 0.0 Abs Immat Gran (auto) 0.06 H Absolute Neuts (auto) 9.4 H Absolute Nucleated RBC 0.0 Nucleated RBC % 0.0 Sodium 134 L Potassium 4.2 Chloride 105 Carbon Dioxide 23 Anion Gap 6 L BUN 29 H Creatinine 1.60 H Estim Creat Clear Calc 58 Estimated GFR 45 L Glucose 118 H Calcium 8.2 L Magnesium 2.1 Total Bilirubin 2.3 H AST 32 ALT 39 Alkaline Phosphatase 21 L Total Protein 6.0 L Albumin 3.8 Microbiology 10/10/22 00:47 Unspecified Urine Culture - Final 10/10/22 05:18 Blood Blood Culture - Preliminary 10/10/22 05:18 Blood Blood Culture - Preliminary Patient Feedback: Patient satisfied with anesthetic care.
[2022-10-11 14:05] VITALS: BP 128/62; PULSE 71; RESP 17; TEMP 36.6; O2SAT 100
[2022-10-11] MEDS: oxyBUTYnin CHLORIDE 5 MG TABLET PO (14:11)
--- NOTE | 2022-10-11 15:18 | WPDPN ---
Progress Note: A&P Assessment and Plan (1) Multiple renal calculi: Code(s): N20.0 - Calculus of kidney Status: Acute (2) Hydronephrosis: Code(s): N13.30 - Unspecified hydronephrosis Status: Acute (3) Left ureteral calculus: Code(s): N20.1 - Calculus of ureter Status: Acute (4) Cystitis: Code(s): N30.90 - Cystitis, unspecified without hematuria Status: Acute (5) Hypertension: Code(s): I10 - Essential (primary) hypertension Status: Acute (6) Stage 3a chronic kidney disease (CKD): Code(s): N18.31 - Chronic kidney disease, stage 3a Status: Acute (7) Obstructive sleep apnea: Code(s): G47.33 - Obstructive sleep apnea (adult) (pediatric) Status: Acute Plan Left obstructive uropathy urology consulted going for stent placement and cystoscopy today. CT scan with bilateral renal stones as well as 6 mm proximal left ureteral stone with hydronephrosis UTI Rocephin to continue urine culture pending Hypertension hold valsartan hydrochlorothiazide due to renal function. May use amlodipine consider switching to this CKD stage 3 creatinine back in 2019 was 1.4 slightly elevated at 1.6 today. Will continue to monitor continue IV hydration. Multiple kidney stones continue to follow up urology as an outpatient basis for continued workup and treatment. Cholelithiasis asymptomatic SUZANNA on CPAP continue DVT prophylaxis SCDs Code status full code 10/11/2022 interval history: patient with left ureteral stone s/p stent, stats pain is worsening today, and his UA is negative for any bacterial infection, we will inform urologist and further recommendation to follow, Subjective Date/time seen: 10/11/22 15:18 Interval history: Left obstructive uropathy urology consulted going for stent placement and cystoscopy today. CT scan with bilateral renal stones as well as 6 mm proximal left ureteral stone with hydronephrosis UTI Rocephin to continue urine culture pending Hypertension hold valsartan hydrochlorothiazide due to renal function. May use amlodipine consider switching to this CKD stage 3 creatinine back in 2019 was 1.4 slightly elevated at 1.6 today. Will continue to monitor continue IV hydration. Multiple kidney stones continue to follow up urology as an outpatient basis for continued workup and treatment. Cholelithiasis asymptomatic 10/11/2022 interval history: patient with left ureteral stone s/p stent, stats pain is worsening today, and his UA is negative for any bacterial infection, we will inform urologist and further recommendation to follow, Review of Systems Review of Systems: - CONSTITUTIONAL: Denies weight loss, fever and chills. - HEENT: Denies changes in vision and hearing - RESPIRATORY: Denies SOB and cough. - CV: Denies palpitations and CP. - GI: Reports left flank pain, no abdominal pain, nausea, vomiting and diarrhea. - : Denies dysuria and urinary frequency. - MSK: Denies myalgia and joint pain. - SKIN: Denies rash and pruritus. - NEUROLOGICAL: Denies headache and syncope. - PSYCHIATRIC: Denies recent changes in mood. Denies anxiety and depression. Exam Narrative: Morbidly obese Patient is comfortable, NAD HEENT: eyes are clear and none icteric LUNGS: Normal respiratory effort ABD: Distended Lower extremities: no edema SKIN: nonjaundiced Neuro: grossly intact. Objective Data Vital Signs Vital Signs: Vital Signs - 24 hr 10/10/22 15:30 10/10/22 15:45 10/10/22 16:00 Temperature Pulse Rate 76 83 74 Respiratory Rate 15 20 18 Blood Pressure 127/81 148/92 H 133/82 Pulse Oximetry 98 95 95 Oxygen Delivery Simple Face Mask Simple Face Mask Room Air Oxygen Flow Rate 6 6 10/10/22 17:54 10/10/22 20:27 10/10/22 20:00 Temperature 98.0 F 98.7 F Pulse Rate 73 86 Respiratory Rate 18 18 Blood Pressure 151/88 H 136/81 Pulse Oximetry 90 94 Oxygen Delivery Room Air Oxygen Flow
--- NOTE | 2022-10-11 17:05 | PC.NURSE ---
1400 MELIDA [employer]FAN[employer] NOTIFIED THAT PATIENT C/O SEVERE SHARP PAIN TO LEFT SIDE WITH ANY MOVEMENT.
--- NOTE | 2022-10-11 18:15 | PC.NURSE ---
1600 Call placed to Kyara Moncada [employer] office to notify Kyara STEVENS is done and results in the computer.
--- NOTE | 2022-10-11 18:19 | PC.NURSE ---
Dr Lassiter notified of pt c/o severe sharp pains to left side of back and abd with movement.
--- NOTE | 2022-10-11 20:01 | PC.NURSE ---
Dr. Lassiter called approx. at 1950 to notify he saw CT results. Stated no significant findings seen. Per provider, continue pain management and will await for urology to see pt.
[2022-10-11 20:37] VITALS: BP 159/87; PULSE 78; RESP 18; TEMP 36.7; O2SAT 92
[2022-10-12] MEDS: HYDROmorphone HCL INJ (*CRX) 1 MG/ML SYR 2 MG IV PUSH ×5 (02:33→21:26)
[2022-10-12 05:29] VITALS: BP 157/89; PULSE 69; RESP 17; TEMP 37.1; O2SAT 94
[2022-10-12] MEDS: SODIUM CHLORIDE 0.9% IV 1,000 ML 125 ML IV CONT ×3 (07:13→23:02)
[2022-10-12 08:00] VITALS: O2SAT 94
[2022-10-12] MEDS: ASPIRIN 81 MG ENTERIC TABLET PO (08:01)
[2022-10-12] MEDS: ASCORBIC ACID 500 MG TABLET PO (08:01)
[2022-10-12] MEDS: oxyBUTYnin CHLORIDE 5 MG TABLET PO ×2 (08:02→21:26)
[2022-10-12] MEDS: VALSARTAN 160 MG TABLET PO (08:02)
[2022-10-12] MEDS: DOXAZOSIN MESYLATE 4 MG TABLET PO (08:02)
[2022-10-12] MEDS: hydroCHLOROthiazide 12.5 MG CAPSULE PO (08:02)
[2022-10-12] MEDS: DOCUSATE SODIUM 100 MG CAPSULE PO ×2 (09:29→21:25)
[2022-10-12] MEDS: polyethylene glycoL 3350 17 GM POWD.PACK PO (09:29)
[2022-10-12] MEDS: HYDROcodone/acetaminophen (*CRX) 5-325 MG TABLET 1 TAB PO (09:30)
--- NOTE | 2022-10-12 12:48 | WPDUROPN2 ---
Progress Note: A&P Assessment and Plan (1) Left ureteral calculus: Code(s): N20.1 - Calculus of ureter Status: Acute Assessment and Plan: Stone was moved into the kidney with stent placement, verified with CT 10/11/22 (2) Hydronephrosis: Code(s): N13.30 - Unspecified hydronephrosis Status: Acute Assessment and Plan: Resolved on CT 10/11/22 (3) Multiple renal calculi: Code(s): N20.0 - Calculus of kidney Status: Acute Assessment and Plan: Left renal stone 6mm (4) Pyelonephritis: Code(s): N12 - Tubulo-interstitial nephritis, not specified as acute or chronic Status: Acute Assessment and Plan: Urine culture negative, blood cultures are preliminarily negative The patient is having intense left flank pain secondary to infection/stent intolerance. He has been on IV antibiotics for several days and the stent has been in place for 3 days, will plan to do a cysto with stent removal tomorrow, then an outpatient Lithotripsy next week when off ASA for 5 days. IF doing better with pain tomorrow after stent removal will be ok to discharge home. Start Pyridium to see if that improves pain today. NPO after midnight, Obtain consent Cysto, stent removal left. Subjective Subjective Date/Time Seen: 10/12/22 12:48 Post Op day: 3 Principal diagnosis: Left Ureteral Stone/Pyelonephritis Interval history: Patient is c/o severe left flank pain that is stabbing but intermittent. He is having difficulty with activity, it sierra when he urinates and he is unable to sleep or tolerate eating very well. He is afebrile and WBC is slightly elevated at 11.1, creatinine is at 1.60. Urine culture is negative. CT yesterday shows cystitis shows ascending infection on the left and KUB shows left stone was pushed into the distal pole of the kidney with stent in position. Review of Systems Constitutional: Constitutional: Reports lethargy Cardiovascular: Cardiovascular: Denies chest pain Respiratory: Respiratory: Reports no additional respiratory complaints Gastrointestinal: Gastrointestinal: Reports abdominal pain, Reports constipation, Denies nausea and Denies vomiting Genitourinary: Genitourinary: Denies hematuria, Reports dysuria and Reports flank pain Exam Const: General: cooperative and acute distress Resp: Effort & Inspection: normal respiratory effort Cardio: Rate: regular rate GI: GI Palp: Yes Soft to palpation and Yes Tenderness to palpation present (GI) (LLQ) : General: Yes CVA tenderness on the left Extrem: Right lower extremity: no edema Left lower extremity: no edema Objective Data Vital Signs Vital Signs: Vital Signs - 24 hr 10/11/22 14:05 10/11/22 20:37 10/11/22 21:16 Temperature 97.8 F 98.0 F Pulse Rate 71 78 Respiratory Rate 17 18 Blood Pressure 128/62 159/87 H Pulse Oximetry 100 92 Oxygen Delivery Room Air 10/12/22 05:29 10/12/22 08:00 Temperature 98.7 F Pulse Rate 69 Respiratory Rate 17 Blood Pressure 157/89 H Pulse Oximetry 94 94 Oxygen Delivery Room Air Intake/Output Intake/Output: Intake & Output 10/09/22 10/10/22 10/11/22 10/12/22 23:59 23:59 23:59 23:59 Intake Total 4340 7580 2340 Output Total 1300 2225 1625 Balance 3040 5355 715 Meds/Results Medications: Active Medications Generic Name Dose Route Start Last Admin Trade Name Freq PRN Reason Stop Dose Admin Hydrocodone Bitart/Acetaminophen 1 tab 10/10/22 16:06 10/12/22 09:30 Hydrocodone/Acetaminophen (*Crx) 5-325 Mg Tablet PO 1 tab Q4H PRN Administration Pain Rated 4-6 Ascorbic Acid 500 mg 10/11/22 09:00 10/12/22 08:01 Ascorbic Acid 500 Mg Tablet PO 500 mg DAILY CIPRIANO Administration Aspirin 81 mg 10/11/22 09:00 10/12/22 08:01 Aspirin 81 Mg Enteric Tablet PO 81 mg DAILY [facility] Administration Docusate Sodium 100 mg 10/12/22 09:30 10/12/22 09:29 Docusate Sodium 100 Mg Capsule PO 100 mg Q12HR [facility]
--- NOTE | 2022-10-12 12:53 | WPDPN ---
Progress Note: A&P Assessment and Plan (1) Multiple renal calculi: Code(s): N20.0 - Calculus of kidney Status: Acute (2) Hydronephrosis: Code(s): N13.30 - Unspecified hydronephrosis Status: Acute (3) Left ureteral calculus: Code(s): N20.1 - Calculus of ureter Status: Acute (4) Cystitis: Code(s): N30.90 - Cystitis, unspecified without hematuria Status: Acute (5) Hypertension: Code(s): I10 - Essential (primary) hypertension Status: Acute (6) Stage 3a chronic kidney disease (CKD): Code(s): N18.31 - Chronic kidney disease, stage 3a Status: Acute (7) Obstructive sleep apnea: Code(s): G47.33 - Obstructive sleep apnea (adult) (pediatric) Status: Acute Plan Left obstructive uropathy urology consulted going for stent placement and cystoscopy today. CT scan with bilateral renal stones as well as 6 mm proximal left ureteral stone with hydronephrosis UTI Rocephin to continue urine culture pending Hypertension hold valsartan hydrochlorothiazide due to renal function. May use amlodipine consider switching to this CKD stage 3 creatinine back in 2019 was 1.4 slightly elevated at 1.6 today. Will continue to monitor continue IV hydration. Multiple kidney stones continue to follow up urology as an outpatient basis for continued workup and treatment. Cholelithiasis asymptomatic SUZANNA on CPAP continue DVT prophylaxis SCDs Code status full code 10/12/2022 interval history: patient with left ureteral stone s/p stent, on 10/11 stated pain was worsening to further evaluate patient had CT scan of the abdomen, which showed inflammation alongs stents and today seen by Urologit and suspect most likely pain is due to the inflammation along the stents and it will take few days to get better, will continue pain management and further recommendation to follow, today, and his UA is negative for any bacterial infection, will continue antibiotics for now, we will inform urologist and further recommendation to follow, Subjective Date/time seen: 10/12/22 12:53 Interval history: Left obstructive uropathy urology consulted going for stent placement and cystoscopy today. CT scan with bilateral renal stones as well as 6 mm proximal left ureteral stone with hydronephrosis UTI Rocephin to continue urine culture pending Hypertension hold valsartan hydrochlorothiazide due to renal function. May use amlodipine consider switching to this CKD stage 3 creatinine back in 2019 was 1.4 slightly elevated at 1.6 today. Will continue to monitor continue IV hydration. Multiple kidney stones continue to follow up urology as an outpatient basis for continued workup and treatment. Cholelithiasis asymptomatic 10/12/2022 interval history: patient with left ureteral stone s/p stent, on 10/11 stated pain was worsening to further evaluate patient had CT scan of the abdomen, which showed inflammation alongs stents and today seen by Urologit and suspect most likely pain is due to the inflammation along the stents and it will take few days to get better, will continue pain management and further recommendation to follow, today, and his UA is negative for any bacterial infection, will continue antibiotics for now, we will inform urologist and further recommendation to follow, Review of Systems Review of Systems: - CONSTITUTIONAL: Denies weight loss, fever and chills. - HEENT: Denies changes in vision and hearing - RESPIRATORY: Denies SOB and cough. - CV: Denies palpitations and CP. - GI: Reports left flank pain, no abdominal pain, nausea, vomiting and diarrhea. - : Denies dysuria and urinary frequency. - MSK: Denies myalgia and joint pain. - SKIN: Denies rash and pruritus. - NEUROLOGICAL: Denies headache and syncope. - PSYCHIATRIC: Denies recent changes in mood. Denies anxiety and depression. Exam Narrative: Morbidly obese Patient is comfortable, NAD HEENT: eyes a
[2022-10-12] MEDS: PHENAZOPYRIDINE HCL 100 MG TABLET 200 MG PO ×2 (13:38→17:21)
--- NOTE | 2022-10-12 14:09 | P.PNAN_ITS ---
Anes - Initial Pre Proc Eval Procedure: Operation Date: 10/13/22 12:45 Proposed Procedures p Cystoscopy with Left Stent Removal - Erick Jennings MD Date/Time: 10/12/22 14:09 Surgeon: Rosario Araya MD Pre Op Diagnosis: Left Ureteral Stone, Cystitis Patient Data Age: 57 Gender: M Height: 1.75 m Weight: 111 kg Last Vital Signs Temp 37.1 C 10/12/22 05:29 Pulse 69 10/12/22 05:29 Resp 17 10/12/22 05:29 BP 157/89 H 10/12/22 05:29 Pulse Ox 94 10/12/22 08:00 O2 Del Method Room Air 10/12/22 08:00 O2 Flow Rate 6 10/10/22 15:45 Allergies Allergy/AdvReac Type Severity Reaction Status Date / Time No Known Allergies Allergy Verified 10/10/22 14:10 Home Medications Medication Instructions Recorded Confirmed Type valsartan 160 1 tablet PO DAILY 02/26/19 10/10/22 History mg-hydrochlorothiazide 12.5 mg tablet ascorbic acid (vitamin C) 500 mg 500 mg PO DAILY 03/21/22 10/10/22 History capsule aspirin 81 mg tablet,delayed 81 mg PO DAILY 03/21/22 10/10/22 History release (Adult Low Dose Aspirin) doxazosin 4 mg tablet 4 mg PO DAILY 03/21/22 10/10/22 History rooerfi-lgeyriecd-ocwk 333 mg-133 1 tablet PO DAILY 10/10/22 10/10/22 History mg-5 mg tablet Patient hx anesthesia problems: none Family hx anesthesia problems: none Results Review: All pre-operative results and documents have been reviewed as part of the pre- operative evaluation. [facility] Past Medical History Medical History (Updated 10/12/22 @ 12:56 by Kyara Moncada APRN) Hypertension Obstructive sleep apnea Stomach ulcer Surgical History Surgical History History of colonoscopy Family History Family History Father Hypertension Mother Hypertension Unknown Hypertension Social History Social History Smoking status: Never smoker Alcohol intake: never Substance use: never Lack of Transportation: No Lack of Food: Never True Current Housing: I Have Housing Concerned About Future Housing: No Difficulty Paying Gas/Electric Bills: No Difficulty Paying for Meds: No Currently Unemployed: No Education: Associate Degree Difficulty w/ Childcare or Family Care: No Living arrangements: alone 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 Informed Consent: The patient's anesthetic plan and its attendant risks and benefits were discussed with the patient/family/POA. Questions were solicited and answers provided to the satisfaction of the patient/famil
[2022-10-12 14:29] VITALS: BP 162/88; PULSE 74; RESP 18; TEMP 37.1; O2SAT 92
[2022-10-12 19:34] VITALS: BP 161/88; PULSE 58; RESP 18; TEMP 37.3; O2SAT 90
[2022-10-13] VITALS (11 sets, daily range): BP systolic 149–190; BP diastolic 86–100; PULSE 62–94; RESP 17–23; TEMP 36.4–37.2; O2SAT 67–97
[2022-10-13] MEDS: oxyBUTYnin CHLORIDE 5 MG TABLET PO (03:58)
[2022-10-13] MEDS: HYDROmorphone HCL INJ (*CRX) 1 MG/ML SYR 2 MG IV PUSH (03:59)
--- NOTE | 2022-10-13 06:18 | PC.NURSE ---
Pt's daughter, Cee Donohue, called this morning for updates. Updates given. Told daughter pt will be going to surgery today to get stent removed. Daughter would like to get a call when pt goes in for surgery and once he gets out from surgery.
--- NOTE | 2022-10-13 06:38 | WPDHPUPDATE1 ---
History and Physical Update Update Date/Time: 10/13/22 06:38 History and Physical has been reviewed, including an updated exam of the patient. There are NO changes in the patient's condition. Risks, benefits, and alternatives have been discussed and questions answered. Patient agrees to proceed with procedure.
[2022-10-13] MEDS: SODIUM CHLORIDE 0.9% IV 1,000 ML 125 ML IV CONT ×2 (08:52→20:13)
[2022-10-13] MEDS: DOXAZOSIN MESYLATE 4 MG TABLET PO (08:57)
--- NOTE | 2022-10-13 11:55 | PC.NURSE ---
To OR via stretcher. Family at bedside. Voiding well. Verbal report given to Katya RN Preop,
[2022-10-13] MEDS: LACTATED RINGERS 1,000 ML 30 ML IV CONT (12:15)
[2022-10-13] MEDS: fentaNYL CITRATE INJ (*CRX) 100 MCG/2 ML VIAL 50 MCG IV PUSH ×2 (12:20→12:42)
[2022-10-13] MEDS: LIDOCAINE HCL 2% GEL UROJET 10 ML PKG MUCOUS MEM (14:00)
--- NOTE | 2022-10-13 14:12 | W.PM.PROC2 ---
Procedure Note - Detailed Date of Procedure 10/13/22 Pre-op Diagnosis Left Renal Stone, Cystitis Post-op Diagnosis Other ( Left renal stone) Procedure Performed Cystoscopy left ureteral stent removal Surgeon Erick Jennings MD Anesthesia MAC Description of Procedure The patient was brought to the operative suite where he was prepped and draped in a routine sterile fashion while in the dorsal lithotomy position. A 19 F rigid cystoscope was placed in her bladder and the bladder was circumferentially inspected. There were no urethral strictures. The prostatic urethral estimated length was 1.5cm. There was mild obstruction of the prostatic urethra with no median lobe. The bladder mucosa was without hyperemia. There was no intravesical foreign body or neoplasm. There was a single orthotopic ureteral orifice bilaterally. Tip of the indwelling stent was grasped and it was removed with ease. Scopes and wires were removed after emptying the patient's bladder. Estimated Blood Loss 0 Urine Output 500 Complications No immediate complications Condition Stable Disposition PACU
--- NOTE | 2022-10-13 14:45 | PC.NURSE ---
Returned from OR via stretcher. Voiding without difficulty.
[2022-10-13] MEDS: VALSARTAN 160 MG TABLET PO (15:05)
[2022-10-13] MEDS: hydroCHLOROthiazide 12.5 MG CAPSULE PO (15:05)
[2022-10-13] MEDS: polyethylene glycoL 3350 17 GM POWD.PACK PO (15:07)
[2022-10-13] MEDS: PHENAZOPYRIDINE HCL 100 MG TABLET 200 MG PO (16:36)
--- NOTE | 2022-10-13 16:48 | WPDPN ---
Progress Note: A&P Assessment and Plan (1) Multiple renal calculi: Code(s): N20.0 - Calculus of kidney Status: Acute (2) Hydronephrosis: Code(s): N13.30 - Unspecified hydronephrosis Status: Acute (3) Left ureteral calculus: Code(s): N20.1 - Calculus of ureter Status: Acute (4) Cystitis: Code(s): N30.90 - Cystitis, unspecified without hematuria Status: Acute (5) Hypertension: Code(s): I10 - Essential (primary) hypertension Status: Acute (6) Stage 3a chronic kidney disease (CKD): Code(s): N18.31 - Chronic kidney disease, stage 3a Status: Acute (7) Obstructive sleep apnea: Code(s): G47.33 - Obstructive sleep apnea (adult) (pediatric) Status: Acute Plan Left obstructive uropathy urology consulted going for stent placement and cystoscopy today. CT scan with bilateral renal stones as well as 6 mm proximal left ureteral stone with hydronephrosis UTI Rocephin to continue urine culture pending Hypertension hold valsartan hydrochlorothiazide due to renal function. May use amlodipine consider switching to this CKD stage 3 creatinine back in 2019 was 1.4 slightly elevated at 1.6 today. Will continue to monitor continue IV hydration. Multiple kidney stones continue to follow up urology as an outpatient basis for continued workup and treatment. Cholelithiasis asymptomatic SUZANNA on CPAP continue DVT prophylaxis SCDs Code status full code 10/13/2022 interval history: patient with left ureteral stone s/p stent, on 10/11 stated pain was worsening to further evaluate patient had CT scan of the abdomen, which showed inflammation alongs stents and today seen by Urologit and suspect most likely pain is due to the inflammation along the stents and it will take few days to get better, will continue pain management and further recommendation to follow, patient pain was worsening and was seen by his urology and had a cystoscopy and stent was removed which has helped with the pain, patient states is feeling much better, his UA is negative for any bacterial infection, if remains clinically stable will discharge the patient home tomorrow Subjective Date/time seen: 10/13/22 16:48 Interval history: Left obstructive uropathy urology consulted going for stent placement and cystoscopy today. CT scan with bilateral renal stones as well as 6 mm proximal left ureteral stone with hydronephrosis UTI Rocephin to continue urine culture pending Hypertension hold valsartan hydrochlorothiazide due to renal function. May use amlodipine consider switching to this CKD stage 3 creatinine back in 2019 was 1.4 slightly elevated at 1.6 today. Will continue to monitor continue IV hydration. Multiple kidney stones continue to follow up urology as an outpatient basis for continued workup and treatment. Cholelithiasis asymptomatic SUZANNA on CPAP continue DVT prophylaxis SCDs Code status full code 10/13/2022 interval history: patient with left ureteral stone s/p stent, on 10/11 stated pain was worsening to further evaluate patient had CT scan of the abdomen, which showed inflammation alongs stents and today seen by Urologit and suspect most likely pain is due to the inflammation along the stents and it will take few days to get better, will continue pain management and further recommendation to follow, patient pain was worsening and was seen by his urology and had a cystoscopy and stent was removed which has helped with the pain, patient states is feeling much better, his UA is negative for any bacterial infection, if remains clinically stable will discharge the patient home tomorrow Review of Systems Review of Systems: - CONSTITUTIONAL: Denies weight loss, fever and chills. - HEENT: Denies changes in vision and hearing - RESPIRATORY: Denies SOB and cough. - CV: Denies palpitations and CP. - GI: Reports left flank pain, no abdominal pain, nausea, vomiting and diarrhea. - : Denies
[2022-10-13] MEDS: DOCUSATE SODIUM 100 MG CAPSULE PO (20:13)
[2022-10-14 03:56] VITALS: BP 160/98; PULSE 66; RESP 18; TEMP 36.3; O2SAT 91
[2022-10-14] MEDS: SODIUM CHLORIDE 0.9% IV 1,000 ML 125 ML IV CONT (04:34)
[2022-10-14] MEDS: VALSARTAN 160 MG TABLET PO (08:11)
[2022-10-14] MEDS: DOCUSATE SODIUM 100 MG CAPSULE PO (08:12)
[2022-10-14] MEDS: ASCORBIC ACID 500 MG TABLET PO (08:12)
[2022-10-14] MEDS: hydroCHLOROthiazide 12.5 MG CAPSULE PO (08:12)
[2022-10-14] MEDS: PHENAZOPYRIDINE HCL 100 MG TABLET 200 MG PO ×2 (08:12→11:23)
[2022-10-14] MEDS: DOXAZOSIN MESYLATE 4 MG TABLET PO (08:12)
[2022-10-14 08:15] VITALS: RESP 18; O2SAT 94
--- NOTE | 2022-10-14 10:45 | PM.DS ---
DS: Admitting Diagnosis Discharge Date 10/14/2022 Admitting Diagnosis Left flank pain DS: Discharge Diagnosis Discharge Diagnosis (1) Multiple renal calculi: Code(s): N20.0 - Calculus of kidney Status: Acute (2) Hydronephrosis: Code(s): N13.30 - Unspecified hydronephrosis Status: Acute (3) Left ureteral calculus: Code(s): N20.1 - Calculus of ureter Status: Acute (4) Cystitis: Code(s): N30.90 - Cystitis, unspecified without hematuria Status: Acute (5) Hypertension: Code(s): I10 - Essential (primary) hypertension Status: Acute (6) Stage 3a chronic kidney disease (CKD): Code(s): N18.31 - Chronic kidney disease, stage 3a Status: Acute (7) Obstructive sleep apnea: Code(s): G47.33 - Obstructive sleep apnea (adult) (pediatric) Status: Acute Plan Left obstructive uropathy urology consulted going for stent placement and cystoscopy today. CT scan with bilateral renal stones as well as 6 mm proximal left ureteral stone with hydronephrosis UTI Rocephin to continue urine culture pending Hypertension hold valsartan hydrochlorothiazide due to renal function. May use amlodipine consider switching to this CKD stage 3 creatinine back in 2019 was 1.4 slightly elevated at 1.6 today. Will continue to monitor continue IV hydration. Multiple kidney stones continue to follow up urology as an outpatient basis for continued workup and treatment. Cholelithiasis asymptomatic SUZANNA on CPAP continue DVT prophylaxis SCDs Code status full code 10/13/2022 interval history: patient with left ureteral stone s/p stent, on 10/11 stated pain was worsening to further evaluate patient had CT scan of the abdomen, which showed inflammation alongs stents and today seen by Urologit and suspect most likely pain is due to the inflammation along the stents and it will take few days to get better, will continue pain management and further recommendation to follow, patient pain was worsening and was seen by his urology and had a cystoscopy and stent was removed which has helped with the pain, patient states is feeling much better, his UA is negative for any bacterial infection, if remains clinically stable will discharge the patient home tomorrow DS: Summary Hospital Course Reason for hospitalization: Chief Complaint: Left flank pain Narrative: 57 old male with past medical history of hypertension presented to the ED complaining of left flank pain that started 2 days ago on all severe yesterday with associated hematuria.? Pain in the left fine radiates to the left lower abdomen and groin on occasion.? Severe intensity reports no dysuria no nausea vomiting no fever chills.? No change in bowel habits.? Cardiogram revealed normal WBC count creatinine slightly elevated 1.6 UA indicated a possible infection CT revealed 8 point cm stone in the proximal left ureter with mild hydronephrosis.? Rocephin was given urology has been consulted. Hospital Course: patient with left ureteral stone s/p stent, on 10/11 stated pain was worsening to further evaluate patient had CT scan of the abdomen, which showed inflammation alongs stents and today seen by Urologit and suspect most likely pain is due to the inflammation along the stents and it will take few days to get better, will continue pain management and further recommendation to follow, patient pain was worsening and was seen by his urology and had a cystoscopy and stent was removed which has helped with the pain, patient states is feeling much better,? his UA is negative for any bacterial infection, if remains clinically stable will discharge the patient home tomorrow. Today patient is clinically stable, his pain has improved, will discharge patinet today. Time Spent with Patient Time attestation: Total time spent providing and/or coordinating discharge services: Exam Narrative: Morbidly obese Patient is comfortable, NAD HEENT: eyes are
--- NOTE | 2022-10-14 13:20 | WPDANESPN ---
Anes - Prog Note Post-Op Date/Time: 10/14/22 13:20 Cardiovascular status: normal Respiratory status: normal Airway patency: baseline Mental status: baseline Post-Op hydration status: normal Vital Signs: Last Vital Signs Temp 97.3 F L 10/14/22 03:56 Pulse 66 10/14/22 03:56 Resp 18 10/14/22 08:15 BP 160/98 H 10/14/22 03:56 Pulse Ox 94 10/14/22 08:15 O2 Del Method Room Air 10/14/22 08:15 O2 Flow Rate 6 10/13/22 14:04 Pain Score (VAS): 0/10 I/O: Intake & Output 10/13/22 10/14/22 10/14/22 23:59 07:59 15:59 Intake Total 1250 1050 814 Output Total 1000 1200 Balance 250 -150 814 Laboratory Tests 10/11/22 05:11 10/11/22 05:11 Post-procedural complaints: none Patient Feedback: Patient satisfied with anesthetic care.
== END 2022-10-14 11:25 | disposition home or self-care (01) | DRG 661 ==
LOC: ANHED 10-10 02:28 → ANH2MED 10-10 03:11
PROVIDERS: Internal Medicine; Urology; Admitting Provider Internal Medicine; Emergency Provider Physician Assistant; PCP Family Medicine; Visit Provider Family Medicine
PROC: 0T778DZ Dilation of Left Ureter with Intraluminal Device, Via Natural or Artificial Opening Endoscopic (ICD-10-PCS; CPT 52352; principal; 2022-10-10 16:00)
PROC: 0TP98DZ Removal of Intraluminal Device from Ureter, Via Natural or Artificial Opening Endoscopic (ICD-10-PCS; CPT 52310; principal; 2022-10-13 12:45)
DX: N13.6 Pyonephrosis (principal); N30.91 Cystitis, unspecified with hematuria; I12.9 Hypertensive chronic kidney disease with stage 1 through stage 4 chronic kidney disease, or unspecified chronic kidney disease; N18.31 Chronic kidney disease, stage 3a; G47.33 Obstructive sleep apnea (adult) (pediatric); Z68.36 Body mass index [BMI] 36.0-36.9, adult; E66.01 Morbid (severe) obesity due to excess calories; K80.20 Calculus of gallbladder without cholecystitis without obstruction
CPT/HCPCS: 36415; 74018; 74176; 74420; 80048; 80053; 81001; 83735; 85025; 85027; 87040; 87086; 96361; 96365; 96375; 96376; 99285; A9270; C1758; C1769; C2617; J0696; J1100; J1170; J1885; J2250; J2405; J2704; J3010; J7030; J7120; Q9966

== ENCOUNTER 2022-11-04 00:59 | Day surgery (SDC) | payer BC, SELFPAY ==
[2022-11-01 11:48] VITALS: BMI 35.2
--- NOTE | 2022-11-01 11:53 | PC.NURSE ---
Report to the Outpatient Waiting Room, entrance under the green pavilion located off [facility], at time 0630 on date 11/04/22. Planned Procedure Time: 0830. Time changes happen often and if your time is changed the preop area will call you the afternoon before. - You and your visitor will be asked to self-screen and do not enter if you have any COVID symptoms. - A mask is optional within the hospital at this time. Patients may have clear liquids (water, carbonated beverages, clear teas, apple juice) until 3 hours prior to surgery with a maximum of 20 ounces. - No food from midnight until time of surgery Take the following medications with a SIP of water the morning of surgery: NONE DO NOT STOP ANY OF YOUR OTHER PRESCRIPTION MEDICATIONS PRIOR TO SURGERY ?EXCEPT THE FOLLOWING Medications to discontinue per physician: PT HAS ALREADY STOPPED VITAMINS, LAST DOSE OF XARELTO WAS TODAY Date to take last dose: ALREADY STOPPED Please no make-up, nail divehi, hairspray, perfume, deodorant, or body powder the day of surgery. No jewelry (including any body piercings) or valuables the day of surgery, leave them at home. Please take a shower or bath the night before, or the morning of, surgery with an antibacterial soap. Wear comfortable, loose fitting clothing. - Jewelry must be removed prior to entering the operating room. Rings and piercings that are not removed may be cut off. - The hospital will not accept responsibility for valuables. - Please leave all valuables, including medications, at home the day of surgery. If you are going home after surgery, a licensed route delivery driver must drive you home. - NO public transportation without another adult if you receive anesthesia. - We recommend that an adult stay with you for 24 hours following discharge. - We also recommend that you do not drive, make important decision, drink alcoholic beverages, or take any drugs that were not prescribed by your health care provider for at least 24 hours after your discharge time. Follow any additional instructions given to you from your surgeon. If you or anyone in your household have experienced Covid symptoms in the past week, please notify your surgeon or the nurse liaison at the phone number below for possible testing. Telephone instructions given to PT - BRIGETTE FISCHER and asked if any additional questions and then verbalized understanding. Patient advised to call surgeon office or pre surgery nurse liaison [phone] if any additional questions.
--- NOTE | 2022-11-02 07:14 | PM.HPGS ---
History of Present Illness History of Present Illness Consent: Risks, benefits, and alternatives have been discussed and questions answered. Patient agrees to proceed with procedure. Chief complaint: left kidney stones Narrative: Brad Barahona is a 57 year old male who recently presented with a 5 mm obstructing ureteral stone. A stent was placed but he developed intractable stent pain. Stone had been pushed back into his kidney so we removed the stent and he now presents for definitive left ESWL. He is aware the risks including, but not limited to, adverse cardiopulmonary events, need for additional procedures, hematuria and perinephric hematoma Review of Systems Review of Systems: All systems reviewed & are unremarkable except as noted in HPI and below PMFSH Past Medical History Medical History (Updated 11/02/22 @ 07:16 by Erick Jennings MD) Hypertension Obstructive sleep apnea Stomach ulcer Surgical History Surgical History History of colonoscopy Family History Family History Father Hypertension Mother Hypertension Unknown Hypertension Social History Social History Smoking status: Never smoker Alcohol intake: never Substance use: never Substance use type: does not use Lack of Transportation: No Lack of Food: Never True Current Housing: I Have Housing Concerned About Future Housing: No Difficulty Paying Gas/Electric Bills: No Difficulty Paying for Meds: No Currently Unemployed: No Education: Associate Degree Difficulty w/ Childcare or Family Care: No Living arrangements: alone 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 Spiritual care concerns: No Meds Home Medications and Allergies Home Medications Medication Instructions Recorded Confirmed Type valsartan 160 1 tablet PO DAILY 02/26/19 11/01/22 History mg-hydrochlorothiazide 12.5 mg tablet ascorbic acid (vitamin C) 500 mg 500 mg PO DAILY 03/21/22 11/01/22 History capsule hjxfmnt-lijivjvtx-zsyi 333 mg-133 1 tablet PO DAILY 10/10/22 11/01/22 History mg-5 mg tablet rivaroxaban 20 mg tablet (Xarelto) 20 mg PO DAILY 11/01/22 11/01/22 History Allergies Allergy/AdvReac Type Severity Reaction Status Date / Time No Known Allergies Allergy Verified 11/01/22 11:45 Exam Const: General: no acute distress Resp: Effort & Inspection: normal respiratory effort GI: Inspection: non-distended GI Palp: No abdominal tenderness and No Guarding due to palpation present (GI) Auscultation: normal bowel sounds Assessment and Plan Assessment and plan (1) Left renal stone: Code(s): N20.0 - Calculus of kidney Status: Acute Assessment and Plan: Left ESWL
[2022-11-04] VITALS (8 sets, daily range): BP systolic 100–138; BP diastolic 68–93; PULSE 62–86; RESP 13–25; TEMP 36.1–36.4; O2SAT 96–100
--- NOTE | ~2022-11-04 | XR_ITS ---
EXAMINATION: XR abdomen/kub 1V DATE: 11/04/2022 06:14 INDICATION: Kidney stones. TECHNIQUE: A supine view of the abdomen on 2 radiographs was obtained. COMPARISON: CT abdomen and pelvis 10/11/2022 FINDINGS: There are multiple stones in each kidney measuring up to 9 mm on the right and 8 mm on the left. There are phleboliths in left pelvis. There are no dilated loops of bowel. IMPRESSION: 1. Bilateral kidney stones. Reviewed, dictated and finalized at location A. IMPRESSION: 1. Bilateral kidney stones.
--- NOTE | 2022-11-04 06:44 | WPDHPUPDATE1 ---
History and Physical Update Update Date/Time: 11/04/22 06:44 History and Physical has been reviewed, including an updated exam of the patient. There are NO changes in the patient's condition. Risks, benefits, and alternatives have been discussed and questions answered. Patient agrees to proceed with procedure. Plan: Left ESWL
[2022-11-04] MEDS: LACTATED RINGERS 1,000 ML 30 ML IV CONT ×2 (07:00→08:58)
--- NOTE | 2022-11-04 07:14 | P.PNAN_ITS ---
Anes - Initial Pre Proc Eval Procedure: Operation Date: 11/04/22 08:30 Proposed Procedures p Left Extracorporeal Shock Wave Lithotripsy - Erick Jennings MD Date/Time: 11/04/22 07:14 Surgeon: Erick Jennings MD Pre Op Diagnosis: left kidney stones Patient Data Age: 57 Gender: M Height: 1.75 m Weight: 108 kg Allergies Allergy/AdvReac Type Severity Reaction Status Date / Time No Known Allergies Allergy Verified 11/01/22 11:45 Home Medications Medication Instructions Recorded Confirmed Type valsartan 160 1 tablet PO DAILY 02/26/19 11/01/22 History mg-hydrochlorothiazide 12.5 mg tablet ascorbic acid (vitamin C) 500 mg 500 mg PO DAILY 03/21/22 11/01/22 History capsule sxfcrhu-hwitovyrz-zncb 333 mg-133 1 tablet PO DAILY 10/10/22 11/01/22 History mg-5 mg tablet rivaroxaban 20 mg tablet (Xarelto) 20 mg PO DAILY 11/01/22 11/01/22 History Patient hx anesthesia problems: none Family hx anesthesia problems: none Results Review: All pre-operative results and documents have been reviewed as part of the pre- operative evaluation. [facility] Past Medical History Medical History (Updated 11/02/22 @ 07:16 by Erick Jennings MD) Hypertension Obstructive sleep apnea Stomach ulcer Surgical History Surgical History History of colonoscopy Family History Family History Father Hypertension Mother Hypertension Unknown Hypertension Social History Social History Smoking status: Never smoker Alcohol intake: never Substance use: never Substance use type: does not use Lack of Transportation: No Lack of Food: Never True Current Housing: I Have Housing Concerned About Future Housing: No Difficulty Paying Gas/Electric Bills: No Difficulty Paying for Meds: No Currently Unemployed: No Education: Associate Degree Difficulty w/ Childcare or Family Care: No Living arrangements: alone 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 Informed Consent: The patient's anesthetic plan and its attendant risks and benefits were discussed with the patient/family/POA. Questions were solicited and answers provided to the satisfaction of the patient/family/POA.
[2022-11-04 07:28] LABS: Prothrombin Time 13.4 Seconds (11.1-14.7)
[2022-11-04 07:29] LABS: Partial Thromboplastin Time 31.6 SECONDS (22.3-36.8)
[2022-11-04] MEDS: ceFAZolin 2 GM/D5W 50 ML 2 GM/50 ML BAG IVPB (08:17)
--- NOTE | 2022-11-04 08:33 | W.PM.PROC2 ---
Procedure Note - Detailed Date of Procedure 11/04/22 Pre-op Diagnosis Left kidney stones Post-op Diagnosis Same Procedure Performed Left ESWL Surgeon Erick Jennings MD Anesthesia General Description of Procedure The patient was brought to the operative suite where he was placed in the supine position on the Dornier lithotripsy table. The focal point of the lithotripter was placed at a 6mm left lower calyceal calculus. A total of 2500 shocks were delivered at a power setting of 4. There appeared to be good fragmentation of the stone. The patient tolerated the procedure well and was taken to the recovery room in good condition. Drains No Packing Yes Pathology None sent Complications No immediate complications Condition Stable Disposition PACU
--- NOTE | 2022-11-04 09:29 | SUR.PHASEI ---
0927: Simple mask removed.
== END 2022-11-04 10:50 | disposition home or self-care (01) ==
PROVIDERS: PCP Family Medicine; Visit Provider Urology
PROC: (CPT 50590; principal; 2022-11-04 08:30)
DX: N20.0 Calculus of kidney (principal); I10 Essential (primary) hypertension; G47.33 Obstructive sleep apnea (adult) (pediatric); E66.9 Obesity, unspecified; Z68.35 Body mass index [BMI] 35.0-35.9, adult; Z79.01 Long term (current) use of anticoagulants
CPT/HCPCS: 50590; 36415; 74018; 85610; 85730; J0690; J7120

== ENCOUNTER → 2022-11-11 11:15 | Outpatient (CLI) | payer BC, SELFPAY ==
--- NOTE | ~2022-11-11 | XR_ITS ---
EXAMINATION: XR abdomen/kub 1V DATE: 11/11/2022 12:49 INDICATION: Left renal stone. TECHNIQUE: A supine view of the abdomen on 2 radiographs was obtained. COMPARISON: CT abdomen and pelvis 10/11/2022, radiographs 11/04/2022 FINDINGS: There are no dilated loops of bowel. There are gallstones in the gallbladder. There is an 1 1 mm stone in right kidney. The kidneys are obscured by bowel. There are two 3 mm stones in left kidn ey. IMPRESSION: 1. Bilateral kidney stones. 2. Cholelithiasis. Reviewed, dictated and finalized at location E.
== END ==
PROVIDERS: PCP Urology; Visit Provider Urology
DX: N20.0 Calculus of kidney (principal); K80.20 Calculus of gallbladder without cholecystitis without obstruction
CPT/HCPCS: 74018

== ENCOUNTER 2022-11-25 12:42 | Outpatient (CLI) | payer BC, SELFPAY ==
[2022-11-25 14:25] LABS: Prothrombin Time 13.4 Seconds (11.1-14.7)
[2022-11-25 14:26] LABS: Partial Thromboplastin Time 31.6 SECONDS (22.3-36.8)
== END 2022-11-25 12:43 | disposition home or self-care (01) ==
LOC: ANHSURGERY 12:45
PROVIDERS: PCP Family Medicine; Visit Provider Urology
DX: Z01.812 Encounter for preprocedural laboratory examination (principal); N20.0 Calculus of kidney
CPT/HCPCS: 36415; 85610; 85730; 87086; 87088

== ENCOUNTER 2022-12-02 01:32 | Day surgery (SDC) | payer BC, SELFPAY ==
[2022-11-23 11:07] VITALS: BMI 35.4
--- NOTE | 2022-11-23 11:09 | PC.NURSE ---
Report to the Outpatient Waiting Room, entrance under the green pavilion located off [facility], at time 6:30 on date 12/02/22. Planned Procedure Time: 8:30. Time changes happen often and if your time is changed the preop area will call you the afternoon before. - You and your visitor will be asked to self-screen and do not enter if you have any COVID symptoms. - A mask is optional within the hospital at this time. Patients may have clear liquids (water, carbonated beverages, clear teas, apple juice) until 3 hours prior to surgery (5:30) with a maximum of 20 ounces. - No food from midnight until time of surgery Take the following medications with a SIP of water the morning of surgery: NONE DO NOT STOP ANY OF YOUR OTHER PRESCRIPTION MEDICATIONS PRIOR TO SURGERY ?EXCEPT THE FOLLOWING Medications to discontinue per physician: VITAMINS/SUPPLEMENTS Date to take last dose: 11/28/[address] CASTILLO REGARDING XARELTO Please no make-up, nail french, hairspray, perfume, deodorant, or body powder the day of surgery. No jewelry (including any body piercings) or valuables the day of surgery, leave them at home. Please take a shower or bath the night before, or the morning of, surgery with an antibacterial soap. Wear comfortable, loose fitting clothing. - Jewelry must be removed prior to entering the operating room. Rings and piercings that are not removed may be cut off. - The hospital will not accept responsibility for valuables. - Please leave all valuables, including medications, at home the day of surgery. If you are going home after surgery, a licensed bookmobile driver must drive you home. - NO public transportation without another adult if you receive anesthesia. - We recommend that an adult stay with you for 24 hours following discharge. - We also recommend that you do not drive, make important decision, drink alcoholic beverages, or take any drugs that were not prescribed by your health care provider for at least 24 hours after your discharge time. Follow any additional instructions given to you from your surgeon. If you or anyone in your household have experienced Covid symptoms in the past week, please notify your surgeon or the nurse liaison at the phone number below for possible testing. Telephone instructions given to PT - BRIGETTE FISCHER and asked if any additional questions and then verbalized understanding. Patient advised to call surgeon office or pre surgery nurse liaison [phone] if any additional questions.
[2022-12-02] VITALS (11 sets, daily range): BP systolic 92–137; BP diastolic 51–92; PULSE 53–76; RESP 14–20; TEMP 36.7–36.9; O2SAT 94–97
--- NOTE | ~2022-12-02 | XR_ITS ---
Supine and upright views of the abdomen Clinical history: Lithotripsy COMPARISON: 11/11/2022 Findings: Bowel gas pattern is nonspecific. No evidence for obstruction or free air. There are probab le small bilateral renal stones present. Osseous structures are intact. Impression: Probable small bilateral renal stones. Reviewed, dictated and finalized at [facility]. Impression: Probable small bilateral renal stones.
--- NOTE | 2022-12-02 07:01 | WPDHPUPDATE1 ---
History and Physical Update Update Date/Time: 12/02/22 07:01 History and Physical has been reviewed, including an updated exam of the patient. There are NO changes in the patient's condition. Risks, benefits, and alternatives have been discussed and questions answered. Patient agrees to proceed with procedure.
--- NOTE | 2022-12-02 07:16 | P.PNAN_ITS ---
Anes - Initial Pre Proc Eval Procedure: Operation Date: 12/02/22 08:30 Proposed Procedures p Right Extracorporeal Shock Wave Lithotripsy - Erick Jennings MD Date/Time: 12/02/22 07:16 Surgeon: Erick Jennings MD Pre Op Diagnosis: Rt Kidney Stones Patient Data Age: 57 Gender: M Height: 1.75 m Weight: 109 kg Allergies Allergy/AdvReac Type Severity Reaction Status Date / Time No Known Allergies Allergy Verified 11/23/22 11:07 Home Medications Medication Instructions Recorded Confirmed Type valsartan 160 1 tablet PO DAILY 02/26/19 11/23/22 History mg-hydrochlorothiazide 12.5 mg tablet ascorbic acid (vitamin C) 500 mg 500 mg PO DAILY 03/21/22 11/23/22 History capsule mhbrmtl-[id number]-[id number] 333 mg-133 1 tablet PO DAILY 10/10/22 11/23/22 History mg-5 mg tablet rivaroxaban 20 mg tablet (Xarelto) 20 mg PO DAILY 11/01/22 11/23/22 History hydrocodone 5 mg-acetaminophen 325 1 - 2 tablet PO Q6H PRN pain #20 11/04/22 11/23/22 Rx mg tablet tabs Patient hx anesthesia problems: none Family hx anesthesia problems: none Results Review: All pre-operative results and documents have been reviewed as part of the pre- operative evaluation. [facility] Past Medical History Medical History Hypertension Obstructive sleep apnea Stomach ulcer Surgical History Surgical History (Updated 12/02/22 @ 07:16 by Everett Ames MD) H/O lithotripsy History of colonoscopy Family History Family History Father Hypertension Mother Hypertension Unknown Hypertension Social History Social History Smoking status: Never smoker Alcohol intake: never Substance use: never Substance use type: does not use Lack of Transportation: No Lack of Food: Never True Current Housing: I Have Housing Concerned About Future Housing: No Difficulty Paying Gas/Electric Bills: No Difficulty Paying for Meds: No Currently Unemployed: No Education: Associate Degree Difficulty w/ Childcare or Family Care: No Living arrangements: alone 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 Informed Consent: The patient's anesthetic plan and its attendant risks and benefits were discussed with the patient/family/POA. Questions were solicited and answers provided to the satisfaction of the patient/family/POA.
[2022-12-02] MEDS: LACTATED RINGERS 1,000 ML 30 ML IV CONT (07:29)
[2022-12-02] MEDS: ceFAZolin 2 GM/D5W 50 ML 2 GM/50 ML BAG IVPB (08:09)
--- NOTE | 2022-12-02 08:34 | W.PM.PROC2 ---
Procedure Note - Detailed Date of Procedure 12/02/22 Pre-op Diagnosis Rt Kidney Stones Post-op Diagnosis Same Procedure Performed Right ESWL Surgeon Erick Jennings MD Anesthesia General Description of Procedure The patient was brought to the operative suite where he was placed in the supine position on the Dornier lithotripsy table. The focal point of the lithotripter was placed at a 11x5 calculus. A total of 2500 shocks were delivered at a power setting of 4. There appeared to be good fragmentation of the stone. The patient tolerated the procedure well and was taken to the recovery room in good condition. Drains No Packing No Pathology None sent Complications No immediate complications Condition Stable Disposition PACU
[2022-12-02] MEDS: fentaNYL CITRATE INJ (*CRX) 100 MCG/2 ML VIAL 25 MCG IV PUSH ×4 (09:28→09:35)
[2022-12-02] MEDS: oxyCODONE HCL (*CRX) 5 MG TAB IR PO (09:45)
== END 2022-12-02 10:50 | disposition home or self-care (01) ==
PROVIDERS: PCP Family Medicine; Visit Provider Urology
PROC: (CPT 50590; principal; 2022-12-02 08:30)
DX: N20.0 Calculus of kidney (principal); I10 Essential (primary) hypertension; G47.33 Obstructive sleep apnea (adult) (pediatric); E66.9 Obesity, unspecified; Z68.35 Body mass index [BMI] 35.0-35.9, adult; Z79.01 Long term (current) use of anticoagulants; Z79.891 Long term (current) use of opiate analgesic
CPT/HCPCS: 50590; 36415; 74018; 85610; 85730; 87086; A9270; J0690; J1100; J2250; J2405; J2704; J3010; J7120

== ENCOUNTER → 2022-12-16 14:27 | Outpatient (CLI) | payer BC, SELFPAY ==
--- NOTE | ~2022-12-16 | XR_ITS ---
XR abdomen/kub 1V DATE: 12/16/2022 14:47 INDICATION: Kidney calculus TECHNIQUE: 2 AP views COMPARISON: 12/02/2022 KUB 10/11/2022 CT abdomen pelvis FINDINGS: There are several calcified densities overlying the left kidney including 2 very small calc ifications and an approximately 6 mm calcification overlying the lower pole. There are multiple calcifications overlying the right kidney, the largest overlying the lower pole, m easuring approximately 8 mm. No apparent calcified calculus of either ureter or urinary bladder is noted. The psoas shadows are intact. No visceromegaly. There is no evidence of bowel obstruction. IMPRESSION: Bilateral nonobstructive nephrolithiasis Reviewed, dictated and finalized at [facility]. Reviewed, dictated and finalized at [facility].
== END ==
PROVIDERS: PCP Family Medicine; Visit Provider Urology
DX: N20.0 Calculus of kidney (principal); A49.8 Other bacterial infections of unspecified site
CPT/HCPCS: 74018

== ENCOUNTER → 2023-03-31 11:27 | Outpatient (CLI) | payer BC, SELFPAY ==
--- NOTE | ~2023-03-31 | XR_ITS ---
EXAMINATION: XR abdomen/kub 1V INDICATION: Left renal stone TECHNIQUE: Supine views of the abdomen were obtained on 2 radiographs. COMPARISON: 12/16/2022 FINDINGS: A 5 mm stone of the left kidney lower pole is unchanged. There are additional punctate calc ifications of the left kidney, also stable. Bowel gas obscures visualization of the previously descri bed stones of the right kidney lower pole. There is a stable 3 mm stone of the right kidney upper amina e. The bowel gas pattern is normal. There are phleboliths of the pelvis. IMPRESSION: 1. Bilateral nephrolithiasis without definite change. Reviewed, dictated and finalized at location [facility]. [employer]
== END ==
PROVIDERS: PCP Urology; Visit Provider Urology
DX: N20.0 Calculus of kidney (principal)
CPT/HCPCS: 74018

== ENCOUNTER 2025-01-01 13:52 | Outpatient (CLI) | payer OTHER, SELFPAY ==
--- NOTE | ~2025-01-01 | XR_ITS ---
XR lumbar spine 2-3V Indication: Lumbar spine injury onset sacrum soreness X2 wks Comparison: None Findings: The vertebral heights are intact. No fracture or subluxation. Moderate loss of disc height throughout Soft tissues unremarkable Impression: No acute abnormality. Reviewed, dictated and finalized at location [facility]. Impression: No acute abnormality.
--- NOTE | ~2025-01-01 | XR_ITS ---
EXAMINATION: XR sacrum coccyx min 2V, 01/01/2025 14:05 CDT HISTORY: Lumbar spine injury onset sacrum soreness X2 wks COMPARISON: No comparisons available. Findings: No acute fracture or malalignment. No significant degenerative changes. Soft tissues unremarkable. Impression: No acute fracture or malalignment. Reviewed, dictated and finalized at location [facility]. Impression: No acute fracture or malalignment.
--- NOTE | ~2025-01-01 | XR_ITS ---
EXAMINATION: XR abdomen/kub 1V, 01/01/2025 14:05 CDT HISTORY: L renal stone; CHECK UP COMPARISON: No comparisons available. Technique: 3 view. Findings: Bowel gas pattern unremarkable. No obstruction. Bilateral renal calculi the largest left kidney lower pole 5 x 6 mm. No acute osseous abnormality. Impression: 1. No acute abnormality. Reviewed, dictated and finalized at location [facility]. Impression: 1. No acute abnormality.
== END 2025-01-01 13:53 | disposition home or self-care (01) ==
PROVIDERS: PCP Family Medicine; Visit Provider Urology
DX: S34.109A Unspecified injury to unspecified level of lumbar spinal cord, initial encounter (principal); N20.0 Calculus of kidney; X58.XXXA Exposure to other specified factors, initial encounter
CPT/HCPCS: 72100; 72220; 74018

== ENCOUNTER 2025-03-02 20:08 | Emergency (ER) | payer OTHER, SELFPAY ==
--- NOTE | ~2025-03-02 | CT_ITS ---
EXAMINATION: CT abdomen pelvis w con DATE: 03/02/2025 22:45 INDICATION: Abdominal pain TECHNIQUE: Computed tomography (CT) of the abdomen and pelvis was performed with 100 mL Omnipaque-350 intravenous contrast. Automated exposure control and iterative reconstruction technique were employed. The dose-length product was 1075.54 mGy-cm. COMPARISON: 10/11/2022 FINDINGS: Mild bilateral dependent and basilar atelectasis. Very small dependent layering right pleural effusion. Heart size is normal. Atherosclerotic coronary artery calcification is. No pericardial effusion. Very small sliding-type hiatal hernia. Diffuse hepatic steatosis. A few calcified gallstones in the dependent aspect of the normal gallbladder. Spleen, pancreas, bilateral adrenal glands are normal. There are bilateral renal cysts the largest on the right measuring 3 cm. There are also several bilateral nonobstructing renal stones with T12 on the right measuring up to 6 mm and 6 on the left measuring up to 7 mm. No ureteral stones or hydronephrosis. The appendix is not visualized. No pericecal inflamm atory change to suggest acute appendicitis. No bowel obstruction. There are few scattered clonic diverticula. There is a short segment of wall thickening and prominent surrounding inflammatory stranding associated with the mid sigmoid colon which given the focality would favor diverticulitis over a focal colitis. No abscess or free intraperineal gas or fluid. There is diffuse mild bladder wall thickening due to at least in part to incomplete distention. Mild prostatomegaly. No pathologically enlarged abdominal or pelvic lymphadenopathy. Mild rectus diastases with small fat-containing umbilical hernia. Moderate to severe spondylosis in the lumbar and visualized lower thoracic spine. IMPRESSION: 1. Radiographically uncomplicated diverticulitis along the mid sigmoid colon. 2. Cholelithiasis. 3. Bilateral nonobstructing nephrolithiasis. 4. Very small sliding-type hiatal hernia. 5. Mild wall thickening at the dome of the bladder due to at least in part to incomplete distention but could also be due to chronic outlet obstruction from the enlarged prostate or cystitis either acute or chronic. Correlate with urinalysis. Reviewed, dictated and finalized at location A. PACKER IMPRESSION: 1. Radiographically uncomplicated diverticulitis along the mid sigmoid colon. 2. Cholelithiasis. 3. Bilateral nonobstructing nephrolithiasis. 4. Very small sliding-type hiatal hernia. 5. Mild wall thickening at the dome of the bladder due to at least in part to i ncomplete distention but could also be due to chronic outlet obstruction from t he enlarged prostate or cystitis either acute or chronic. Correlate with urinal ysis.
--- OUTSIDE RECORDS SUMMARY | 2025-03-02 20:11 | XMS_ITS | Clinical Summary ---
Author Organization [facility] Address [address] [place] [address] Care Team Providers Care Automation Technologist Name Role Phone Sergo Miller MD Primary Care Provider + Bryan Zhang MD Unavailable Allergies No known active allergies Medications acetaminophen-asp irin-caffeine (EXCEDRIN MIGRAINE) 250-250-65 mg per tablet Take 2 tablets by mouth as needed Active ibuprofen (ADVIL,MOTRIN) 200 mg tab/cap Take 3 tablet/capsu le (600 mg total) by mouth as needed for pain Active ascorbic acid (VITAMIN C) 1,000 mg tablet Take 1 tablet (1,000 mg total) by mouth daily Active calcium-magnesium -zinc tablet Take 1 tablet by mouth daily Active finasteride (PROSCAR) 5 mg tablet Take 1 tablet (5 mg total) by mouth nightly 3 Active doxazosin (CARDURA) 4 mg tablet Take 1 tablet (4 mg total) by mouth nightly Active aspirin 81 mg enteric coated tablet Take 1 tablet (81 mg total) by mouth daily Active valsartan-hydroCH LOROthiazide (DIOVAN-HCT) 160-12.5 mg per tabletIndications :Essential hypertension Take 1 tablet by mouth every morning 90 tablet 3 5 Active Active Problems Problem Noted Date Diagnosed Date Dyslipidemia 12/30/2024 Severe obesity 12/22/2023 Assessment & Plan (12/22/2023 3:15 PM CDT): - rec healthy diet and regular exercise Pulmonary air trapping 06/08/2023 BMI 38.0-38.9,adult 12/06/2022 Pulmonary hypertension 12/06/2022 History of pulmonary embolism 12/06/2022 Benign prostatic hyperplasia without lower urinary tract symptoms 10/25/2022 Assessment & Plan (12/22/2023 3:15 PM CDT): - stable - continue doxazosin, finasteride Assessment & Plan (10/25/2022 12:09 PM CDT): - stable - continue current medication Stage 2 chronic kidney disease 10/20/2022 Essential hypertension 10/20/2022 Assessment & Plan (12/22/2023 3:15 PM CDT): - stable - continue valsartan/HCTZ Assessment & Plan (10/25/2022 12:06 PM CDT): - stable - continue current medication Nephrolithiasis 10/20/2022 Diastolic dysfunction without heart failure 10/11 Right ventricular dysfunction 10/20/2022 Cor pulmonale, acute 10/18/2022 Bilateral pulmonary embolism 10/17/2022 Assessment & Plan (10/25/2022 12:07 PM CDT): - stable - continue current medication - ref to hematology for evaluation for possible cause Assessment & Plan (10/17/2022 9:59 PM CDT): Telemetry Bilateral pulmonary emboli noted with right heart strain Heparin drip Echocardiogram obtained Vascular surgery consultation for thrombectomy assessment Pain management p.r.n. 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 Teselidia aparicio Pulmonary nodules/lesions, multiple 10/17/2022 Assessment & Plan (10/17/2022 10:02 PM CDT): As noted on CT imaging Per documentation, new pulmonary nodule 0.5 cm in right upper lobe noted and increased size of multiple pulmonary nodules are also identified. Largest pulmonary nodules measuring 2.4 cm in right upper lobe. Patient denies family history of lung cancer/any cancers Patient denies history of smoking Pulmonary consultation possible bronchoscopy Dyspnea on exertion 04/20/2022 Assessment & Plan (04/20/2022 10:48 AM AIR TRAFFIC INSTRUCTOR): - unclear etiology - normal EKG today - will check CXR and labs - rec pt continue with plan for stress test on Monday; go to ER if CP returns and does not resolve with rest. - f/u in 2 mo Annual physical exam 12/21/2021 Assessment & Plan (12/22/2023 3:15 PM CDT): - Reviewed with the patient BMI, blood pressure, diet, exercise, and encouraged healthy lifestyle choices. - Screened for high risk behaviors, diet and exercise habits, and symptoms of depression. - check screening labs - encouraged regular exercise and weight loss Assessment & Plan (12/21/2021 3:35 PM CDT): - Reviewed with the patient BMI, blood pressure, diet, exercise, and encouraged healthy lifestyle choices. - Screened for high risk behaviors, diet and exercise habits, and symptoms of depression. 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 12/28/2018 Overview (12/28/2018): Added automatically from request for surgery [id number] Laceration of left index finger without foreign body 08/13/2018 Overview (08/13/2018): Added automatically from request for surgery [id number] Lung mass 10/09/2013 Pain in shoulder 10/08/2013 Palpitations 05/14/2013 Atherosclerosis of coronary artery 05/10/2012 Assessment & Plan (12/22/2023 3:14 PM CDT): - stable - continue ASA Assessment & Plan (04/20/2022 10:49 AM AIR TRAFFIC INSTRUCTOR): - stable - continue current medication - continue with plan for stress test Monday Obstructive sleep apnea syndrome 05/10/2012 Assessment & Plan (12/22/2023 3:14 PM CDT): - stable - continue CPAP Resolved Problems Problem Noted Date Diagnosed Date Resolved Date Class 2 severe obesity due t o excess calories with serious comorbidity and body mass index (BMI) of 35.0 to 35.9 in adult 10/20/2022 Hypertension 05/10/2012 10/25/2022 Assessment & Plan (04/20/2022 10:49 AM AIR TRAFFIC INSTRUCTOR): - stable but elevated BP today - will check labs and cxr - Normal EKG today - monitor BP, f/u in 2 mo to recheck BP, if still high will increase meds Assessment & Plan (12/21/2021 3:35 PM CDT): - stable - continue current medication Encounters Date Type Department Care Team Description 01/03/2025 Telephone [facility] [address] [place] [phone] Sergo Miller MD 01/01/2025 Orders Only [facility] Health Information Management [address] [place] [id number] Scanning, Provider 12/30/2024 3:00 PM CDT Office Visit [facility] [address] [place] [phone] Sergo Miller MD Annual physical exam (Primary Dx); Essential hypertension; Obstructive sleep apnea syndrome; Benign prostatic hyperplasia without lower urinary tract symptoms; Pulmonary hypertension (HCC); Screening PSA (prostate specific antigen); Screening, lipid; Morbid (severe) obesity due to excess calories (HCC); Dyslipidemia from Last 3 Months Immunizations Immunization Administration Dates Next Due Influenza, Quadrivalent, Spl it, Preservative Free, Intramuscular 12/21/2021 Influenza, Trivalent, IM (MDV) 03/15/2017 Influenza, Unspecified 12/30/2024(Deferr ed: Patient Refused),12/22/2023(Deferred: Patient Refused),12/11/2022(Deferred: Patient Refused),12/11/2020(Deferred: Patient Refused) Tdap 08/13/2018 ZOSTER Recombinant 05/17/2021,03/16/2021 Surgical History Surgery Date Site/Laterality Comments CARPAL TUNNEL RELEASE 03/13/1998 - 03/12/1999 Right ESOPHAGOGASTRODUODENOSCOPY 01/08/2019 Medical History Medical History Date Comments Sleep apnea uses C-PAP BPH (benign prostatic hyperplasia) well controlled with meds Migraine 3-4/month. Last migraine 3 weeks ago Hypertension well controlled with meds GERD (gastroesophageal reflux disease) recently started meds as precautionary. recent biopsy -negative Family History Medical History Relation Name Comments Hypertension Brother Family history of hypertension - (Added by TW Conv) Hypertension Father Family history of hypertension - (Added by TW Conv) Hypertension Paternal Grandfather Family history of hypertension - (Added by TW Conv) Heart attack Paternal Grandmother Family history of heart attack - (Added by TW Conv) Relation Name Status Comments Brother Father Alive Mother Alive Paternal Grandfather Paternal Grandmother Social History Tobacco Use Types Packs/Day Years Used Date Smoking Tobacco: Never Smokeless Tobacco: Never Tobacco Cessation:Counseling Given: Not Answered Alcohol Use Standard Drinks/Week Comments Never 0 (1 standard drink = 0.6 oz pur e alcohol) Social Connection and Isolation Panel Answer Date Recorded In a typical week, how many times do you talk on the phone with family, friends, or neighbors? Three times a week 10/18/2022 How often do you get togethe r with friends or relatives? Three times a week 10/18/2022 How often do you attend chur Joox or anglican services? Never 10/18/2022 Do you belong to any clubs o r organizations such as adventism groups, unions, fraternal or athletic groups, or school groups? No 10/18/2022 How often do you attend meet ings of the clubs or organizations you belong to? Never 10/18/2022 Are you , , di vorced, , never , or living with a partner? 10/18/2022 Overall Financial Resource Strain (CARDIA) Answe r Date Recorded How hard is it for you to pa y for the very basics like food, housing, medical care, and heating? Not hard at all 10/18/2022 PHQ-2 Answer Date Recorded PHQ-2 Total Score (If total score is 3 or more points, staff should administer the PHQ-9) 0 12/30/2024 Hunger Vital Sign Answer Date Recorded Within the past 12 months, y ou worried that your food would run out before you got the money to buy more. Never true 10/19/19 23 Within the past 12 months, t he food you bought just didn't last and you didn't have money to get more. Never true 10/18/2022 PRAPARE - Transportation Answer Date Re corded In the past 12 months, has l ack of transportation kept you from medical appointments or from getting medications? No 10/2022 In the past 12 months, has l ack of transportation kept you from meetings, work, or from getting things needed for daily living? No 10/18/2022 Housing Stability Vital Sign Answer Rhys e Recorded In the last 12 months, was t here a time when you were not able to pay the mortgage or rent on time? No 10/18/2022 In the last 12 months, how many places have you lived? 1 10/18/2022 In the last 12 months, was t here a time when you did not have a steady place to sleep or slept in a senior living (including now)? No 10/18/2022 AUDIT-C Answer Date Recorded Q1: How often do you have a drink containing alcohol? Never 12/30/2024 Q2: How many drinks containi ng alcohol do you have on a typical day when you are drinking? Patient does not drink Q3: How often do you have si x or more drinks on one occasion? Never 12/30/2024 Personal Safety Answer Date Recorded Have you ever been in or are you currently in a harmful physical or emotional relationship or is someone making you feel afraid or unsafe? Denies 10/19/2022 Sex and Gender Information Value Date Recorded Sex Assigned at Not on file Legal Sex Male 3:29 AM AIR TRAFFIC INSTRUCTOR Gender Identity Not on file Sexual Orientation Not on file Last Filed Vital Signs Vital Sign Reading Time Taken Comments Blood Pressure 134/86 12/30/2024 2:27 PM CDT Pulse 95 12/30/2024 2:27 PM CDT Temperature 36.7 C (98 F) 12/30/2024 2:27 PM CDT Respiratory Rate 16 12/30/2024 2:27 PM CDT Oxygen Saturation 97% 12/30/2024 2:27 PM CDT Inhaled Oxygen Concentration - - Weight 111.1 kg (245 lb) 12/30/2024 2:27 PM CDT Height 175.3 cm (5' 9) 12/30/2024 2:27 PM CDT Body Mass Index 36.18 12/30/2024 2:27 PM CDT Plan of Treatment Health Maintenance Due Date Last Done Comments Hepatitis C Screening 1965 Hepatitis B Screening 07/02/1985 Pneumococcal vaccine <65 (1 of 2 - PCV) 07/02/1986 Covid-19 Vaccine (2024-2 6 season) 2024 03/16/2021, 06/29/2020, 06/08/2020 Influenza Vaccine (#1) 2024 12/21/2021, 2017 Depression Screening 12/30/2025 12/30/2024, 12/22/2023, 12/21/2021 Regular Well Visit/Exam 18-64 12/30/2025, 12/22/2023, 12/21/2021 Prostate Cancer Screening-PSA 12/31/2026 12/31/2024, 10/19/2023 DTaP/Tdap/Td Vaccine (2 - Td or Tdap) 08/13/2028 08/13/2018 Colon Cancer Screening-Colonoscopy 02/26/20292018 Colon Cancer Screening-CT Colonography Discontinued 02/26/2019 Colon Cancer Screening-DNA Stool Discontinued 02/27/20 Colon Cancer Screening-FIT Discontinued 02/26/2019 Colon Cancer Screening-Sigmoidoscopy Discontinued 02/10 Zoster Vaccine Completed 05/17/2021, 03/16/2021 Medical Devices Implanted Type Area Dipping Machine Operator Device Identifier Shelf Expiration Date Model / Serial / Lot [employer] [id number] Jeronimo .045in 6in 2 Trocar Smooth Wire Fixation Sterile - [id number] Implanted:Qty: 1 on 08/16/2018 by Gabriella Lee MD at [facility] [employer] [id number] / / Description:INSERTED INTO LE FT INDEX FINGER ( CUT IN HALF AND BOTH ENDS OF PIN IN FINGER) [employer] Device Clsr Perclose Prostyle Sut-Mediatd Closure-Repair Sys [id number] - [id number] Implanted:Qty: 1 on 10/19/2022 by Bryan Zhang MD at [facility] [employer] 07/10/2024 [id number] / / [id number] [employer] Device Clsr Perclose Prostyle Sut-Mediatd Closure-Repair Sys [id number] - [id number] Implanted:Qty: 1 on 10/19/2022 by Bryan Zhang MD at [facility] [employer] 07/10/2024 [id number] / / [id number] Procedures Procedure Name Priority Date/Time Associated Diagnosis Comments SCAN - RADIOLOGY/IMAGING 01/01/2025 PSA SCREEN Routine 12/31/2024 8:41 AM CDT COMPREHENSIVE METABOLIC PANEL Routine 12/31/2024 8:31 AM CDT CBC WITH AUTO DIFFERENTIAL Routine 12/31/2024 8:22 AM CDT LIPID PANEL Routine 12/31/2024 8:17 AM CDT COLONOSCOPY Routine 02/26/2019 from Last 3 Months or Most Recently Relevant to Health Maintenance Results * SCAN - RADIOLOGY/IMAGING (01/01/2025) Anatomical Region Laterality Modality Other us Provider Scanning Final Result * PSA screen (12/31/2024 8:41 AM CDT) Pathologist [facility] SCRIBED PSA, Serum 1.7 0.0 - 4.0 EXTERNAL LAB Blood Historical Provider LAB BLOOD ORDERABLES Pily l Result EXTERNAL LAB * (ABNORMAL) Comprehensive metabolic panel (12/31/2024 8:31 AM CDT) SCRIBED Sodium 141 135 - 145 mmol/L EXTERNAL LAB SCRIBED Potassium 4.1 3.3 - 5.2 mmol/L EXTERNAL LAB SCRIBED Chloride 104 97 - 110 mmol/L EXTERNAL LAB SCRIBED Carbon Dioxide 22 22 - 32 mmol/L EXTERNAL LAB SCRIBED Anion Gap 0 0 - 0 mmol/L EXTERNAL LAB SCRIBED Urea Nitrogen (BUN) 15 6 - 25 mg/dL EXTERNAL LAB SCRIBED Creatinine 1.10 0.80 - 1.30 mg/dL EXTERNAL LAB SCRIBED Glucose 89 70 - 199 mg/dL EXTERNAL LAB SCRIBED Calcium 9.8 8.5 - 10.3 mg/dL EXTERNAL LAB SCRIBED Bilirubin 1.5(A) 0.1 - 1.2 mg/dL EXTERNAL LAB SCRIBED Plasma Protein 6.6 6.5 - 8.5 g/dL EXTERNAL LAB SCRIBED Albumin 4.6 3.5 - 5.0 g/dL EXTERNAL LAB SCRIBED Alkaline Phosphatase 44 40 - 130 Units/L EXTERNAL LAB SCRIBED Alanine Transaminase (ALT) 33 7 - 55 Units/L EXTERNAL LAB SCRIBED Aspartate Transaminase (AST) 22 10 - 50 Units/L EXTERNAL LAB SCRIBED eGFR 78 >60 mL/min/1.7 3 m2 EXTERNAL LAB Blood Historical Provider LAB BLOOD ORDERABLES Pily goel Result EXTERNAL LAB * (ABNORMAL) CBC with auto differential (12/31/2024 8:22 AM CDT) Pathologist [facility] SCRIBED WBC 6.0 3.8 - 9.9 K/cumm EXTERNAL LAB SCRIBED Hemoglobin 15.7 13.0 - 17.5 g/dL EXTERNAL LAB SCRIBED Hematocrit 46.1(A) 35.6 - 45.5 % EXTERNAL LAB SCRIBED Platelets 267 150 - 400 K/cumm EXTERNAL LAB SCRIBED MPV 0 0 - 0 fL EXTERNAL LAB SCRIBED RBC 5.07 4.30 - 5.80 M/cumm EXTERNAL LAB SCRIBED MCV 91 81.3 - 96.4 fL EXTERNAL LAB SCRIBED MCH 31.0 27.1 - 33.3 pg EXTERNAL LAB SCRIBED MCHC 34.1 32.3 - 35.7 g/dL EXTERNAL LAB SCRIBED RDW 13.0 % EXTERNAL LAB SCRIBED RDW CV 0 0 - 0 % EXTERNAL LAB SCRIBED RDW SD 0 0 - 0 fL EXTERNAL LAB SCRIBED NRBC 0 0 - 0 % EXTERNAL LAB SCRIBED NRBC Abs 0 0 - 0 K/cumm EXTERNAL LAB SCRIBED Total Cells Diffed 0 NONE EXTERNAL LAB SCRIBED Neutrophils 55 NONE % EXTERNAL LAB SCRIBED Imm Granulocytes 0 NONE % EXTERNAL LAB SCRIBED Lymphocytes 28 NONE % EXTERNAL LAB SCRIBED Monocytes 10 NONE % EXTERNAL LAB SCRIBED Eosinophils 5 NONE % EXTERNAL LAB SCRIBED Basophils 1 NONE % EXTERNAL LAB SCRIBED Bands 0 NONE % EXTERNAL LAB SCRIBED Segs 0 NONE % EXTERNAL LAB SCRIBED Atypical Lymphocytes 0.1(A) 0.0 - 0.0 % EXTERNAL LAB SCRIBED Neutrophils Abs 3.3 1.5 - 6.5 K/cumm EXTERNAL LAB SCRIBED Imm Granulocytes Abs 0 0.0 - 0 K/cumm EXTERNAL LAB SCRIBED Lymphocytes Abs 1.7 0.8 - 3.3 K/cumm EXTERNAL LAB SCRIBED Monocytes Abs 0.6 0.2 - 0.8 K/cumm EXTERNAL LAB SCRIBED Eosinophils Abs 0.3 0.0 - 0.5 K/cumm EXTERNAL LAB SCRIBED Basophils Abs 0.1 0.0 - 0.1 K/cumm EXTERNAL LAB Blood us Historical Provider LAB BLOOD ORDERABLES Pily l Result EXTERNAL LAB * (ABNORMAL) Lipid panel (12/31/2024 8:17 AM CDT) SCRIBED Cholesterol, Total 215(A) 30 - 199 mg/dL EXTERNAL LAB SCRIBED Triglycerides 82 <=149 mg/dL EXTERNAL LAB SCRIBED HDL 66 >=40 mg/dL EXTERNAL LAB SCRIBED LDL 135(A) <=129 mg/dL EXTERNAL LAB Scribed Non-HDL Cholesterol 0 NONE mg/dL EXTERNAL LAB SCRIBED Total Cholesterol/HDL Ratio 3.3 NONE EXTERNAL LAB Blood us Historical Provider MD LAB BLOOD ORDERABLES Pily l Result EXTERNAL LAB * Colonoscopy (02/26/2019) Anatomical Region Laterality Modality Other us Historical Provider ENDOSCOPY PROCEDURES Pily l Result from Last 3 Months or Most Recently Relevant to Health Maintenance Insurance [facility] H[facility]/PPO Address: [address] [address] [place] [address] [facility] Advance Directives For more information, please contact: [phone] * Full Code (Latest Code Status on File) Date Activated Date Inactivated Comments 10/19/2022 11:11 PM 10/20/2022 6:55 PM * Full Code Date Activated Date Inactivated Comments 10/19/2022 2:38 PM 10/19/2022 11:11 PM Care Teams Automation Technologist Relationship Specialty Start Date End Date Sergo Miller MD [address] [address] PCP - General Family Medicine 12/21/21 Bryan Zhang MD [address] [place] [id number] Consulting Physician Vascular Surgery 10/20/22
--- OUTSIDE RECORDS SUMMARY | 2025-03-02 20:11 | XMS_ITS | Encounter Summary ---
Author Organization [facility] Address [address] [place] [address] Phone Care Team Providers Care Bus Starter Name Role Phone Darryn Ganga Primary Care Provider [phone] James Treadwell MD Unavailable Encounter Details Date Type Department Care Team (Late st Contact Info) Description 02/25/2021 Telephone [facility] [address] [phone] James Treadwell MD [address] [facility] [place] [address] [address] Social History Tobacco Use Types Packs/Day Years Used Date Smoking Tobacco: Never Smokeless Tobacco: Never Alcohol Use Standard Drinks/Week Comments Never 0 (1 standard drink = 0.6 oz pur e alcohol) AUDIT-C Answer Date Recorded Q1: How often do you have a drink containing alc ohol? Never 07/26/2019 Average Number of Drinks Not on file 020 Frequency of Binge Drinking Not on file 07/11 PHQ-2 Answer Date Recorded Total Score - Questions 1-9 0 02/10 Education Answer Date Recorded What is the highest level of school you have completed or the highest degree you have received? 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 Not on file Not on file documented as of this encounter Miscellaneous Notes * Telephone Encounter - Vaishali Toth - 02/25/2021 9:53 AM CST PT HAD 1 YEAR F/U APPT, NO SHOW, MESSAGE LEFT, LETTER SENT CH DRAWER documented in this encounter Plan of Treatment Not on file documented as of this encounter Visit Diagnoses Not on filedocumented in this encounter Additional Health Concerns Assessment Noted Time PHQ-9 Depression Total Score: 0 02/27/20 8:35 AM FRENCH DRAWER documented as of this encounter Care Teams Bus Starter Relationship Specialty Start Date End Date [address] [place] [address] PCP - General Family Medicine 07/12/19 James Treadwell MD [address] [place] [address] Consulting Physician Oncology 07/12/19 documented as of this encounter
--- OUTSIDE RECORDS SUMMARY | 2025-03-02 20:11 | XMS_ITS | Clinical Summary ---
Author Organization [facility] Address [address], [facility] [address] [place] [address] Phone Care Team Providers Care Flower Grower Name Role Phone Ganga Cates Primary Care Provider [phone] James Treadwell MD Unavailable [phone] Allergies No known active allergies Medications valsartan-hydro CHLOROthiazide (DIOVAN-HCT) 160-12.5 MG Tablet Take 1 Tab by mouth. 10/12/2018 Active topiramate (TOPAMAX) 100 MG Tablet Take 100 mg by mouth. 04/11/2019 Active metoprolol Succinate (TOPROL-XL) 50 MG TABLET SR 24 HR TAKE 1 TABLET BY MOUTH EVERYDAY AT BEDTIME 10/12/2018 Active omeprazole (PRILOSEC) 20 MG CAPSULE DELAYED RELEASE Take 20 mg by mouth. Active finasteride (PROSCAR) 5 MG Tablet 04/01/2019 Active Calcium-Magnesi um 250-125 MG Tablet Take by mouth. Active Multiple Vitamins-Minera ls (MULTIVITAMIN ADULT PO) Take by mouth. 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 file Not on file Last Filed Vital Signs Vital Sign Reading Time Taken Comments Blood Pressure 142/82 02/27/2020 8:30 AM INDEX CLERK Pulse 74 02/27/2020 8:30 AM INDEX CLERK Temperature 36.5 C (97.7 F) 02/27/2020 8:30 AM INDEX CLERK Respiratory Rate 16 02/27/2020 8:30 AM INDEX CLERK Oxygen Saturation 98% 02/27/2020 8:30 AM INDEX CLERK Inhaled Oxygen Concentration - - Weight 112.2 kg (247 lb 6.4 oz) 02/27/2020 8:30 AM INDEX CLERK Height 178.5 cm (5' 10.28) 02/27/2020 8:[address] Body Mass Index 35.22 02/27/2020 8:30 AM INDEX CLERK Plan of Treatment Health Maintenance Due Date Last Done Comments Hepatitis C Virus (HCV) Screening 1965 TdaP Immunization 1965 Hepatitis B Immunization (1 of 3 - 19+ 3-dose series) 07/02/1986 Cologuard 07/02/2012 Colonoscopy 07/02/2012 Colorectal Cancer Screening 07/02/2012 Immunochemical Fecal Occult Blood 07/02/2012 Pneumococcal Immunization (5 0+ years) (1 of 1 - PCV) 07/02/2017 Respiratory Syncytial Virus (RSV) Immunization (Adult) (1 - Risk 50-74 years 1-dose series) 07/02/2017 Zoster Immunization (1 of 2) 07/02/2017 Influenza Immunization (#1) 2024 SARS-COV-2 Immunization ( - 2024- season) 2024 Human Papillomavirus (HPV) Immunization (No Doses Required) Completed Meningococcal Immunization (ACWY) Aged Out No longer eligible based on patient's age to complete this topic Rotavirus Immunization Aged Out No lo nger eligible based on patient's age to complete this topic Insurance [facility] Care Teams Flower Grower Relationship Specialty Start Date End Date Ganga [address]ates [address] [place] [address] PCP - General Family Medicine 07/12/19 James Treadwell MD [facility] [address] [place] [id number] Consulting Physician Oncology 07/12/19
--- OUTSIDE RECORDS SUMMARY | 2025-03-02 20:11 | XMS_ITS | Encounter Summary ---
Author Organization [facility] Healthcare Address [address] [place] [address] Care Team Providers Care Deep Submergence Vehicle Crewmember Name Role Phone Sergo Miller MD Primary Care Provider + Bryan Zhang MD Unavailable Encounter Details Date Type Department Care Team (Late st Contact Info) Description 01/01/2025 Orders Only [facility] Health Information Management [address] [place] [address] Scanning, Provider Social History Tobacco Use Types Packs/Day Years [...] 10/18/2022 How often do you attend chur ch or caodaism services? Never 10/18/2022 Do you belong to any clubs o r organizations such as yazidi groups, unions, fraternal or athletic groups, or [...] place to sleep or slept in a group home (including now)? No 10/18/2022 AUDIT-C Answer Date [...] on file Legal Sex Male 3:29 AM [employer] Gender Identity Not on file Sexual Orientation Not on file documented as of this encounter Plan of Treatment Not on file documented as of this encounter Procedures Procedure Name Priority Date/Time Associated Diagnosis Comments SCAN - RADIOLOGY/IMAGING 01/01/2025 documented in this encounter Results * SCAN - RADIOLOGY/IMAGING (01/01/2025) Anatomical Region Laterality Modality Other us Provider Scanning Final Result documented in this encounter Visit Diagnoses Not on filedocumented in this encounter Care Teams Deep Submergence Vehicle Crewmember Relationship Specialty Start Date End Date Sergo Miller MD [address] [address] PCP - General Family Medicine 12/21/21 Bryan Zhang MD [address] [address] Consulting Physician Vascular Surgery 10/20/22 documented as of this encounter
[2025-03-02 20:22] VITALS: BP 159/97; PULSE 97; RESP 18; TEMP 36.8; O2SAT 98
[2025-03-02 20:44] LABS: Hematocrit 42.3 % (42.0-52.0); Hemoglobin 15.2 g/dL (14.0-18.0); Immature Granulocyte Percent A 0.5 % (0-0.5); Lymphocytes Absolute Auto 2.15 K/mm3 (0.9-3.2); Mean Corpuscular HGB Conc 35.9 g/dl (32-36); Mean Corpuscular Hemoglobin 31.1 pg (26-34); Mean Corpuscular Volume 86.7 fl (80-100); Nucleated Red Blood Cells Absolute Auto 0.000 K/mm3 (0.0-0.012); Nucleated Red Blood Cells Perc 0.0 % (0.0-0.2); Platelet Count Result 223 k/mm3 (150-375); Red Blood Count 4.88 M/mm3 (4.6-6.20); White Blood Count 13.1 K/mm3 (4.5-10.0)
[2025-03-02 21:02] LABS: Alanine Aminotransferase 41 U/L (6-50); Albumin Level 4.6 g/dL (3.5-5.1); Alkaline Phosphatase 50 U/L (38-126); Anion Gap 9 mmol/L (4-12); Aspartate Amino Transferase 33 U/L (17-59); Bilirubin,Total 1.6 mg/dL (0.2-1.3); Blood Urea Nitrogen 27 mg/dL (9-20); Calcium 9.4 mg/dL (8.4-10.2); Carbon Dioxide 23 mmol/L (22-30); Chloride 109 mmol/L (98-107); Estimated Glomerular Filt Rate 56; Glucose 94 mg/dL (65-110); Lipase 61 U/L (23-300); Potassium 3.8 mmol/L (3.4-5.0); Sodium 141 mmol/L (137-145); Total Protein 7.3 g/dL (6.3-8.2)
[2025-03-02 21:49] LABS: Add Urine Microscopic? YES; Appearance Urine Cloudy (Clear); Glucose Urine UA Negative (Negative); Leukocyte Esterase Ur Negative LEU/UL (Negative); Nitrate Urine Negative (Negative); Non Pathogenic Casts 0-2; Specific Grav Ur 1.021 (1.001-1.035)
[2025-03-02] MEDS: MORPHINE SULFATE (*CRX) 4 MG/ML INJ IV PUSH (22:21)
[2025-03-02] MEDS: ONDANSETRON INJ 4 MG/2 ML VIAL IV PUSH (22:22)
[2025-03-02] MEDS: SODIUM CHLORIDE 0.9% IV 1,000 ML 999 ML IV CONT (22:22)
--- NOTE | 2025-03-02 22:32 | ED.GENADULT ---
HPI - General Adult General Chief complaint: Abdominal Pain Stated complaint: pain, bloating Time Seen by Provider: 03/02/25 21:50 History of Present Illness HPI narrative: Patient 59-year-old gentleman presents emergency department chief complaint of abdominal pain patient reports the pain started around 5:00 a.m. yesterday he started having the nausea and vomiting the patient states the abnormal bowel movement reports that his abdomen feels very full and aching the patient states he has no prior intra-abdominal surgeries Related Data Home Medications ?Medication ?Instructions ?Recorded ?Confirmed ?Last Taken ?Type valsartan 160 1 tablet PO DAILY 02/26/19 08/08/24 12/02/22 History mg-hydrochlorothiazide 12.5 mg tablet ascorbic acid (vitamin C) 500 mg 500 mg PO DAILY 03/21/22 08/08/24 11/28/22 History capsule dgitsep-yhzaqupad-ylne 333 mg-133 1 tablet PO DAILY 10/10/22 08/08/24 11/28/22 History mg-5 mg tablet rivaroxaban 20 mg tablet (Xarelto) 20 mg PO DAILY 11/01/22 08/08/24 11/29/22 History Held on 12/02/22. Instructions: Resume on 12/04/22. Allergies Allergy/AdvReac Type Severity Reaction Status Date / Time No Known Allergies Allergy Verified 08/08/24 14:51 Review of Systems Review of Systems: A 10 system review of systems was completed on the patient and is negative except for what is stated in the HPI. Nursing and ancillary documentation was reviewed. FOR[facility]LY [facility] Past Medical History Medical History Obstructive sleep apnea Hypertension Stomach ulcer Surgical History Surgical History H/O lithotripsy History of colonoscopy Family History Family History Father Hypertension Mother Hypertension Unknown Hypertension Social History Social History Smoking status: Never smoker Alcohol intake: never Substance use: never Substance use type: does not use Lack of Transportation: No Lack of Food: Never True Current Housing: I Have Housing Concerned About Future Housing: No Difficulty Paying Gas/Electric Bills: No Difficulty Paying for Meds: No Currently Unemployed: No Education: Associate Degree Difficulty w/ Childcare or Family Care: No Living arrangements: alone 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 HEAD: Normocephalic, atraumatic. EYES: PERRLA and EOMI. ENT: Nares clear, no rhinorrhea or epistaxis. Mucous membranes moist. NECK: Supple. CHEST: Clear to auscultation. No respiratory distress. HEART: Regular rate and rhythm. No murmur heard. Normal peripheral pulses. ABDOMEN: Soft, diffusely tender to palpation, nondistended, normal active bowel sounds. EXTREMITIES: Normal range of motion. No edema. SKIN: Warm, dry, no rash. NEURO: No focal deficits. Alert and oriented x3. PSYCH: Normal mood and affect. Course Vital Signs Vital signs: Vital Signs Temperature 36.8 C 03/02/25 20:22 Pulse Rate 97 03/02/25 20:22 Respiratory Rate 18 03/02/25 20:22 Blood Pressure 159/97 H 03/02/25 20:22 Pulse Oximetry 98 03/02/25 20:22 Oxygen Delivery Room Air 03/02/25 20:22 Temperature 36.8 C 03/02/25 20:22 Pulse Rate 97 03/02/25 20:22 Respiratory Rate 18 03/02/25 20:22 Blood Pressure 159/97 H 03/02/25 20:22 Pulse Oximetry 98 03/02/25 20:22 Oxygen Delivery Room Air 03/02/25 20:22 MDM Differential Diagnosis Differential Diagnosis: Diverticulitis, colitis, appendicitis, intra-abdominal infection, Patient received IV fluids and pain medications antiemetics emergency department patient's white blood cell count was 13 electrolytes did not show any significant abnormality did have some mild renal insufficiency with creatinine 1.3 urinalysis showed no evidence UTI CT scan of the abdomen pelvis showed evidence of diverticulitis Patient is feeling better and would like to try outpatient management the patient was given a dose of Cipro and Flagyl in the emergency department will be discharged home on Cipro and Flagyl the patient was given strict return precautions Lab Data 03/02/25 20:33 03/02/25 20:33 Labs: Lab Results 03/02/25 03/02/25 03/02/25 Range/Units 20:33 21:41 22:48 WBC 13.1 H (4.5-10.0) K/mm3 RBC 4.88 (4.6-6.20) M/mm3 Hgb 15.2 (14.0-18.0) g/dL Hct 42.3 (42.0-52.0) % MCV 86.7 (80-100) fl MCH 31.1 (26-34) pg MCHC 35.9 (32-36) g/dl RDW 12.8 (11.5-14.5) % Plt Count 223 (150-375) k/mm3 MPV 8.8 (7.4-10.4) fl Immature Gran % (Auto) 0.5 (0-0.5) % Neut % (Auto) 72.2 (45.5-73.1) % Lymph % (Auto) 16.4 L (18.3-44.2) % Carroll % (Auto) 7.9 (2.6-8.5) % Eos % (Auto) 2.4 (0-4.4) % Baso % (Auto) 0.6 (0.2-1.2) % Lymph # (Auto) 2.15 (0.9-3.2) K/mm3 Carroll # (Auto) 1.0 H (0.1-0.6) K/mm3 Eos # (Auto) 0.3 (0-0.3) K/mm3 Baso # (Auto) 0.1 (0.0-0.1) K/mm3 Abs Immat Gran (auto) 0.06 H (0.00-0.031) K/mm3 Absolute Neuts (auto) 9.5 H (1.3-6.7) K/mm3 Absolute Nucleated RBC 0.000 (0.0-0.012) K/mm3 Nucleated RBC % 0.0 (0.0-0.2) % Sodium 141 (137-145) mmol/L Potassium 3.8 (3.4-5.0) mmol/L Chloride 109 H (98-107) mmol/L Carbon Dioxide 23 (22-30) mmol/L Anion Gap 9 (4-12) mmol/L BUN 27 H (9-20) mg/dL Creatinine 1.31 H (0.7-1.3) mg/dL Estim Creat Clear Calc Not Reportable Estimated GFR 56 L (59 - ) Glucose 94 (65-110) mg/dL Lactic Acid 1.2 (0.7-2.0) mmol/L Calcium 9.4 (8.4-10.2) mg/dL Total Bilirubin 1.6 H (0.2-1.3) mg/dL AST 33 (17-59) U/L ALT 41 (6-50) U/L Alkaline Phosphatase 50 (38-126) U/L Total Protein 7.3 (6.3-8.2) g/dL Albumin 4.6 (3.5-5.1) g/dL Lipase 61 (23-300) U/L Urine Color Yellow (Yellow) Urine Appearance Cloudy H (Clear) Urine pH 6.0 (5.0-9.0) Ur Specific Spencer 1.021 (1.001-1.035) Urine Protein Negative (Negative) mg/dL Urine Glucose (UA) Negative (Negative) mg/dL Urine Ketones Trace H (Negative) mg/dL Ur Blood (Man) Negative (Negative) Urine Nitrate Negative (Negative) Urine Bilirubin Negative (Negative) Urine Urobilinogen 1.0 (<2.0) mg/dL Leukocyte Esterase Rfl Negative (Negative) BRAD/UL Urine RBC 0-2 (0-2) /hpf Urine WBC 0-5 (0-3) /hpf Ur Squamous Epith Cells None seen (Few) /hpf Urine Bacteria None seen /hpf Urine Casts 0-2 Discharge Plan Discharge Clinical Impression: Diverticulitis, Abdominal pain Patient Disposition: Home Condition: Stable Instructions: Antibiotic Form, Diverticulitis (ED), Abdominal Pain (ED) Patient Language: Luxembourgish Prescriptions: New hydrocodone-acetaminophen 5-325 mg tablet 1 tablet PO Q6H PRN (Reason: pain) 3 Days Qty: 12 0RF metronidazole 500 mg tablet 500 mg PO Q8H 10 Days Qty: 30 0RF ciprofloxacin HCl 500 mg tablet 500 mg PO Q12H 10 Days Qty: 20 0RF No Action valsartan-hydrochlorothiazide 160-12.5 mg tablet 1 tablet PO DAILY ascorbic acid (vitamin C) 500 mg capsule 500 mg PO DAILY aizjehk-drmukukfp-eqxv 333-133-5 mg Tablet 1 tablet PO DAILY Xarelto 20 mg tablet 20 mg PO DAILY pravastatin 10 mg tablet 10 mg PO DAILY Qty: 90 2RF Follow-up/Referrals: Angela,Sergo Lopez MD [Primary Care Provider, Unknown] Time of Disposition: 03:16
[2025-03-03] MEDS: HYDROmorphone HCL INJ (*CRX) 1 MG/ML SYR IV PUSH (01:32)
[2025-03-03] MEDS: CIPROFLOXACIN 500 MG TAB PO (03:38)
[2025-03-03] MEDS: HYDROcodone/acetaminophen (*CRX) 5-325 MG TABLET 1 TAB PO (03:40)
[2025-03-03 03:44] VITALS: BP 122/75; PULSE 95; RESP 18; TEMP 36.4; O2SAT 100
== END 2025-03-03 03:46 | disposition home or self-care (01) ==
PROVIDERS: Emergency Provider Emergency Medicine; PCP Family Medicine
DX: K57.92 Diverticulitis of intestine, part unspecified, without perforation or abscess without bleeding (principal); I10 Essential (primary) hypertension
CPT/HCPCS: 36415; 74177; 80053; 81001; 83605; 83690; 85025; 96361; 96374; 96375; 99284; A9270; J1171; J2270; J2405; J7030; Q9967